=== PATIENT | male | born 1970 | race Hispanic/Latino ===

== ENCOUNTER 2023-01-18 12:24 | Emergency (ER) | payer BC, SELFPAY ==
--- NOTE | ~2023-01-18 | XR_ITS ---
EXAMINATION: XR abdomen/kub 1V DATE: 01/18/2023 13:10 INDICATION: Hematuria. Low back pain. TECHNIQUE: A supine view of the abdomen on 2 radiographs was obtained. COMPARISON: CT abdomen and pelvis 10/12/12 FINDINGS: There are no dilated loops of bowel. There is a small volume of stool in the colon. Two 1-2 mm calcifications are noted in left pelvis. IMPRESSION: 1. Normal bowel gas pattern. 2. Two 1-2 mm calcifications in left pelvis, which may be phleboliths or less likely distal ureteral stones. Reviewed, dictated and finalized at location A. IMPRESSION: 1. Normal bowel gas pattern. 2. Two 1-2 mm calcifications in left pelvis, which may be phleboliths or less l ikely distal ureteral stones.
--- NOTE | 2023-01-18 12:27 | ED.GENADULT ---
HPI - General Adult General Chief complaint: Urogenital-Male Stated complaint: uti symptoms Time Seen by Provider: 01/18/23 12:27 Source: patient Mode of arrival: ambulatory Limitations: no limitations History of Present Illness HPI narrative: 52-year-old male patient presents to the [facility] with complaints of urinary symptoms that started today. Patient states he has had slight pain when he urinates but really noticed blood in his urine today which prompted him to come to the urgent care for evaluation. Patient states he has had some urgency but denies any trouble starting his stream. Denies any concerns for STDs. Patient denies any back pain but he states he also does have chronic back pain denies any flank pain at this time. Denies fevers, body aches or chills. Denies any abdominal pain, nausea, vomiting or diarrhea. Related Data Allergies Allergy/AdvReac Type Severity Reaction Status Date / Time No Known Allergies Allergy Verified 01/18/23 12:50 Review of Systems Review of Systems: CONSTITUTIONAL: Denies fever, chills, or sweats. EYES: Denies visual changes, redness, or discharge. ENT: Denies rhinorrhea, congestion, sore throat, or otalgia. CARDIOVASCULAR: Denies chest pain, palpitations, or edema. RESPIRATORY: Denies cough or dyspnea. GASTROINTESTINAL: Denies abdominal pain, nausea, vomiting, or diarrhea. GENITOURINARY: Positive dysuria and hematuria that started today SKIN: Denies rash or itching. MUSCULOSKELETAL: Denies back pain, joint pain, or myalgia. NEUROLOGIC: Denies headache, numbness, or weakness. PSYCHIATRIC: Denies anxiety or depression. [facility] Past Medical History Medical History Chicken pox History of right inguinal hernia Mumps Family History Family History Sibling Liver cancer Father , 85 Liver cancer Social History Social History Social History: 16 ounces of caffeine per day Smoking status: Never smoker Second hand tobacco smoke exposure: No Alcohol intake: unknown Alcohol use details: 1 beer occasionally Substance use: never Substance use type: does not use Occupation/Education: occupation Gender identity (if verbalized by the patient): Male Comments at the time of my signature I agree with nursing past medical history, surgical, social, and family history. There is no relevant family history pertinent to the presenting complaint. Exam Narrative: GENERAL: Well-appearing, well-nourished, and in no acute distress. HEAD: Normocephalic, atraumatic. EYES: PERRLA and EOMI. ENT: Nares clear, no rhinorrhea or epistaxis. Mucous membranes moist. NECK: Supple. No lymphadenopathy CHEST: Clear to auscultation. No respiratory distress. HEART: Regular rate and rhythm. No murmur heard. Normal peripheral pulses. ABDOMEN: Soft, nontender, nondistended, normal active bowel sounds. no CVA tenderness on percussion. EXTREMITIES: Normal range of motion. No edema. SKIN: Warm, dry, no rash. NEURO: No focal deficits. Alert and oriented x3. Course Course Level of Care: Express Care Visit Reevaluation(s) Reevaluation #1: Notify patient that that KUB did show evidence of possible kidney stones that could be causing his symptoms. I recommended that we send the patient over to the ER to obtain a CT just to make sure that there is no evidence of anything obstructing and to follow-up with urology. Patient agrees to this plan of care. Date: 01/18/23 Time: 13:44 Vital Signs Vital signs: Vital Signs Temperature 37.1 C 01/18/23 12:49 Pulse Rate 92 01/18/23 12:49 Respiratory Rate 18 01/18/23 12:49 Blood Pressure 145/84 H 01/18/23 12:49 Pulse Oximetry 98 01/18/23 12:49 Oxygen Delivery Room Air 01/18/23 12:49 Temperature 37.1 C 01/18/23 12:49 Pulse Rate 92 01/18/23 12:
[2023-01-18 12:49] VITALS: BP 145/84; PULSE 92; RESP 18; TEMP 37.1; O2SAT 98
== END 2023-01-18 13:44 | disposition short-term general hospital (02) ==
PROVIDERS: Emergency Provider Nurse Practitioner Family
DX: R31.0 Gross hematuria (principal)
CPT/HCPCS: 74018; 81003; 87086; 99213; G0463

== ENCOUNTER 2023-01-18 14:06 | Emergency (ER) | payer BC, SELFPAY ==
[2023-01-18 14:21] VITALS: BP 129/89; PULSE 90; RESP 18; TEMP 36.4; O2SAT 96
--- NOTE | 2023-01-18 14:26 | ED.MALEGU ---
HPI - Male Genitourinary General Chief complaint: Urogenital-Male Stated complaint: hematuria Time Seen by Provider: 01/18/23 14:09 Source: patient Mode of arrival: ambulatory Limitations: no limitations History of Present Illness HPI Narrative: 52 years old male came to the emergency room because he noticed red urine 3 hours prior to arrival. He denies any fever, chills, nausea, vomiting, pain, history of kidney stone. Patient take vitamin D at home. He does not smoke or drink or uses drugs. He denies having similar symptoms in the past. He is not taking anticoagulant or antiplatelet medication. Related Data Sexually active: No Allergies Allergy/AdvReac Type Severity Reaction Status Date / Time No Known Allergies Allergy Verified 01/18/23 14:24 Review of Systems Review of Systems: All systems reviewed & are unremarkable except as noted in HPI and below PMFSH Past Medical History Medical History Chicken pox History of right inguinal hernia Mumps Family History Family History Sibling Liver cancer Father , 85 Liver cancer Social History Social History Social History: 16 ounces of caffeine per day Smoking status: Never smoker Second hand tobacco smoke exposure: No Alcohol intake: unknown Alcohol use details: 1 beer occasionally Substance use: never Substance use type: does not use Occupation/Education: occupation Gender identity (if verbalized by the patient): Male Exam Narrative: General appearance: Well-developed, well-nourished Skin: Normal color Head: Normocephalic, nontraumatic Eyes: Clear conjunctiva ENT: Oropharynx normal, ears normal, nose normal Neck: Supple, nontender Chest and respiratory: Airway patent, no respiratory distress, no accessory muscle use Heart: Regular rate/rhythm Abdomen: Soft, nontender, no organomegaly, quiet bowel sounds Vascular: Normal peripheral pulses, normal capillary refill. Musculoskeletal: Normal range of motion, nontender back Neurologic: Alert and oriented ?3, MARKING CLERK is normal as tested, no gross motor deficit Course SPARK TESTER/PA Physician Supervision Urine sample is extremely clear. Reevaluation(s) Reevaluation #1: Currently patient is asymptomatic, urine sample is extremely clear. Date: 01/18/23 Time: 14:29 Vital Signs Vital signs: Vital Signs Temperature 36.4 C 01/18/23 14:21 Pulse Rate 90 01/18/23 14:21 Respiratory Rate 18 01/18/23 14:21 Blood Pressure 129/89 01/18/23 14:21 Pulse Oximetry 96 01/18/23 14:21 Oxygen Delivery Room Air 01/18/23 14:21 Temperature 36.4 C 01/18/23 14:21 Pulse Rate 90 01/18/23 14:21 Respiratory Rate 18 01/18/23 14:21 Blood Pressure 129/89 01/18/23 14:21 Pulse Oximetry 96 01/18/23 14:21 Oxygen Delivery Room Air 01/18/23 14:21 MDM - Male Genitourinary MDM Narrative Medical decision making narrative: Patient claiming seeing blood in his urine 2 to 3 hours prior to arrival to the emergency room, he is asymptomatic otherwise. Urine sample was very clear, urine analysis showed 1+ leukoesterase, no blood. UTI is a possibility. Patient will be discharged on Cipro 500 twice daily for 7 days. Differential Diagnosis Differential diagnosis: Likely urinary tract infection Lab Data Attestation: I reviewed the patient's lab results. Labs: Lab Results 01/18/23 Range/Units 14:26 Urine Color Yellow (Yellow) Urine Appearance Clear (Clear) Urine pH 6.5 (5.0-9.0) Ur Specific [place] 1.002 (1.001-1.035
[2023-01-18 14:54] LABS: Add Urine Microscopic? YES; Appearance Urine Clear (Clear); Bacteria Urine None Seen /hpf; Bilirubin Urine Negative (Negative); Blood Urine Trace (Negative); Color Urine Yellow (Yellow); Glucose Urine UA Negative (Negative); Ketones Urine Negative (Negative); Leukocyte Esterase Ur 1+ LEU/UL (Negative); Need Manual Microscopic Reviewed; Nitrate Urine Negative (Negative); Non Pathogenic Casts 0-2; Protein Urine Negative (Negative); RBC Urine 0-2 /hpf (0-2); Specific Grav Ur 1.002 (1.001-1.035); Squamous Epithelial Cell Urine None seen /hpf (Few); Urobilinogen Urine 0.2 mg/dL (<2.0); WBC Urine 0-5 /hpf; pH Urine 6.5 (5.0-9.0)
[2023-01-18 15:22] VITALS: BP 149/87; PULSE 88; RESP 18; O2SAT 96
== END 2023-01-18 15:23 | disposition home or self-care (01) ==
PROVIDERS: Emergency Provider Emergency Medicine
DX: N39.0 Urinary tract infection, site not specified (principal)
CPT/HCPCS: 81001; 99283

== ENCOUNTER 2024-04-08 09:49 | Emergency (ER) | payer BC, SELFPAY ==
--- NOTE | 2024-04-08 09:54 | ED.DIZZY ---
HPI - Dizziness General Chief Complaint: Dizziness Stated Complaint: dizziness Time Seen by Provider: 04/08/24 09:53 Source: patient Mode of arrival: ambulatory Limitations: no limitations History of Present Illness HPI Narrative: Trey is a 53-year-old male patient presenting to the clinic today with complaints of intermittent dizziness for the past couple months. He reports no sinus or nasal congestion. He does not suffer from seasonal allergies. Denies any associated chest pain, shortness of breath, or visual changes. No personal history of diabetes. States that the dizziness room spinning occurs when he turns his head to the right and when he is laying on his right side. He denies any dizziness at this time. Related Data Allergies Allergy/AdvReac Type Severity Reaction Status Date / Time No Known Allergies Allergy Verified 04/08/24 10:05 Review of Systems Review of Systems: Pertinent positives per HPI. Patient denies any fever, chills, rash, headache, visual changes, cough, runny nose, sore throat, shortness of breath, chest pain, palpitations, nausea, vomiting, diarrhea, constipation, abdominal pain, or any urinary issues. [facility] Past Medical History Medical History Chicken pox History of right inguinal hernia Mumps Family History Family History Sibling Liver cancer Father , 85 Liver cancer Social History Social History Social History: 16 ounces of caffeine per day Smoking status: Never smoker Second hand tobacco smoke exposure: No Alcohol intake: unknown Alcohol use details: 1 beer occasionally Substance use: never Substance use type: does not use Lack of Transportation: No Lack of Food: Never True Concerned About Future Housing: No Difficulty Paying Gas/Electric Bills: No Difficulty Paying for Meds: No Currently Unemployed: No Difficulty w/ Childcare or Family Care: No Occupation/Education: occupation Gender identity (if verbalized by the patient): Male Comments At the time of my signature, I reviewed and agree with the nursing past medical, surgical, social, and family history. There is no relevant family history pertinent to the patient complaint. Exam Narrative: General: Well-developed, well nourished, in no apparent distress Head: Normocephalic, atraumatic Eyes: Pupils equally round and reactive to light bilaterally, EOM intact, sclera and conjunctive clear, no discharge, lids normal Ears: TMs intact and clear ear canals clear, no drainage, grossly hearing normal. Nose: Nares patent, no discharge, no inflammation, no sinus tenderness. Mouth: Oropharynx without lesions or masses, good dentition, MMM. Tongue midline, even rise and fall of uvula Neck: Supple, trachea midline, no enlargement of anterior or posterior cervical nodes, no thyroid masses or goiter palpable. Cardio: Regular rate and rhythm, s1 and s2 normal, no murmur appreciated. Resp: Clear to auscultation bilaterally anteriorly and posteriorly, no rhonchi, rales, wheezing or rubs Musculoskeletal: No deformity, non-tender to palpation, grossly normal range of motion, muscle strength strong and equal, peripheral pulse strong, no edema, no cyanosis, normal gait and station Neuro: Alert and oriented x4 with normal speech, no focal deficits, cranial nerves I through XII intact, muscle strength 5 out of 5, sensation intact bilaterally, negative Romberg test Course Course Emergency Course: Portions of this record may have been created with voice recognition software. Level of Care: Express Care Visit Vital Signs Vital signs: Vital signs reviewed MDM - Dizziness MDM Narrative Medical decision making narrative: At the time of visit patient is resting comfortably on the exam table. Patient appears to
[2024-04-08 10:02] VITALS: BP 145/82; PULSE 71; RESP 18; TEMP 36.7; O2SAT 98
--- NOTE | 2024-04-08 10:11 | ECG_ITS ---
Test Date: 2024-04-08 10:26:20 Measurements Intervals [place] Rate: 77 P: 45 CO: 197 QRS: -8 QRSD: 80 T: 26 QT: 342 QTc: 387 Interpretive Statements SINUS RHYTHM EARLY PRECORDIAL R/S TRANSITION INFERIOR INFARCT, AGE INDETERMINATE ABNORMAL ECG No previous ECG available for comparison Electronically Signed On 04-08-2024 10:36:50 CDT by Afshin Giron D.O.
[2024-04-08 10:21] VITALS: BP 134/78; PULSE 72
[2024-04-08 10:26] VITALS: BP 121/84; PULSE 80
[2024-04-08 10:29] VITALS: BP 134/93; PULSE 83
[2024-04-08 10:31] LABS: EDUAAPPEAR Clear; EDUABILI Negative (Negative); EDUABLOOD Negative (Negative); EDUACOLOR1 Yellow; EDUAGLUCOSE Negative (Negative); EDUAKETONE Negative (Negative); EDUALEUKO Negative (Negative); EDUANITRATE Negative (Negative); EDUAPROTEIN Negative (Negative); EDUASPGRAVITY 1.025
[2024-04-08 10:34] LABS: Glucose Point of Care 160 mg/dl (65-105)
== END 2024-04-08 10:44 | disposition home or self-care (01) ==
PROVIDERS: Emergency Provider Nurse Practitioner Family; PCP Emergency Medicine
DX: H81.11 Benign paroxysmal vertigo, right ear (principal); R73.9 Hyperglycemia, unspecified
CPT/HCPCS: 81003; 82948; 93005; 99213; G0463

== ENCOUNTER 2024-07-26 12:21 | Emergency (ER) | payer BC, SELFPAY ==
[2024-07-26 12:32] VITALS: BP 138/81; PULSE 74; RESP 18; TEMP 36.3; O2SAT 99
--- NOTE | 2024-07-26 12:45 | ED.URI ---
HPI - URI/Sore Throat General Chief Complaint: Upper Respiratory Infection Stated Complaint: dizziness Time Seen by Provider: 07/26/24 12:45 Source: patient, RN notes reviewed and old records reviewed Mode of arrival: ambulatory Limitations: no limitations History of Present Illness HPI Narrative: patient with stated history of benign positional vertigo presents today accompanied by his . He reports that he had to leave work early today because he began experiencing dizziness that felt similar, but more severe, that his last bout of vertigo. Reports that he takes meclizine for his symptoms with good relief most of the time, but did not have his meclizine with him today. He has not taken any medication prior to arrival. He denies any injury or trauma. He is observed ambulating with a steady gait. No other concerns or complaints today. Related Data Allergies Allergy/AdvReac Type Severity Reaction Status Date / Time No Known Allergies Allergy Verified 07/26/24 12:46 Review of Systems Review of Systems: All systems reviewed & are unremarkable except as noted in HPI and below Constitutional: Constitutional: Reports no additional constitutional complaints ENT: Reports system reviewed and no additional complaints, except as documented and Reports as per HPI Cardiovascular: Cardiovascular: Reports no additional cardiovascular complaints Respiratory: Respiratory: Reports no additional respiratory complaints Gastrointestinal: Gastrointestinal: Reports no additional gastrointestinal complaints Neurologic: Reports system reviewed and no additional complaints, except as documented, Reports as per HPI, Reports vertigo and Reports dizziness PMFSH Past Medical History Medical History Hyperglycemia History of right inguinal hernia Mumps Chicken pox Family History Family History Sibling Liver cancer Father , 85 Liver cancer Social History Social History Social History: 16 ounces of caffeine per day Smoking status: Never smoker Second hand tobacco smoke exposure: No Alcohol intake: unknown Alcohol use details: 1 beer occasionally Substance use: never Substance use type: does not use Lack of Transportation: No Lack of Food: Never True Concerned About Future Housing: No Difficulty Paying Gas/Electric Bills: No Difficulty Paying for Meds: No Currently Unemployed: No Education: Grade School Difficulty w/ Childcare or Family Care: No Occupation/Education: occupation Gender identity (if verbalized by the patient): Male Comments At the time of my signature, I reviewed and agree with the nursing past medical, surgical, social, and family history. There is no relevant family history pertinent to the patient complaint. Exam Const: General: cooperative, no acute distress, alert and awake Orientation/consciousness: oriented to person, oriented to place and oriented to time HENMT: Head: normal to inspection Ears: TM's normal bilaterally Mouth: Yes moist mucous membranes Resp: Effort & Inspection: normal respiratory effort and able to speak in complete sentences Auscultation: clear to auscultation bilaterally, no crackles, no rales, no rhonchi and no wheezes Cardio: Palpation: normal PMI Rate: regular rate Rhythm: regular rhythm Heart sounds: S1 normal heart sound present and S2 normal heart sound present Neuro: General: oriented to person, oriented to place and oriented to time Cranial nerves: Yes CN's II-XII intact bilaterally Cognition (Neuro): normal cognition Speech: normal speech Gait exam (Neuro): Normal gait present Motor exam (neuro): 5/5 motor strength present throughout Psych: Appearance: grossly normal Thought process: Normal thought process present Insight: Good insight present (Psych) Judgement: Good judgement present (Psych) Course Course Level of Care: Express Care Visit Reevaluation(s) Reevaluation #1: feeling better after taking meclizine Date: 07/26/24 Time: 13:25 Vital Signs Vital signs: Vital Signs Temperature 97.4 F L 07/26/24 12:32 Pulse Rate 74 07/26/24 12:32 Respiratory Rate 18 07/26/24 12:32 Blood Pressure 138/81 07/26/24 12:32 Pulse Oximetry 99 07/26/24 12:32 Oxygen Delivery Room Air 07/26/24 12:32 Temperature 97.4 F L 07/26/24 12:32 Pulse Rate 74 07/26/24 12:32 Respiratory Rate 18 07/26/24 12:32 Blood Pressure 138/81 07/26/24 12:32 Pulse Oximetry 99 07/26/24 12:32 Oxygen Delivery Room Air 07/26/24 12:32 Reviewed MDM - URI/Sore Throat MDM Narrative Medical decision making narrative: Patient with no deficits complaining of dizziness that is reminiscent of past bouts of vertigo. Improved with meclizine. Discharge home with new prescription. Some parts of this dictation were generated by voice recognition software and may contain typographical and/or grammatical inaccuracies. Discharge instructions reviewed with patient, as well as provided in writing per nursing staff. The instructions also include specific and strict return/GO TO THE ER as well as f/u information. All questions have been answered, and the patient deny any further questions with discharge and discharge plan. Differential Diagnosis Differential diagnosis: Likely upper respiratory infection, otitis media, sinusitis, bronchitis, influenza and pharyngitis Medical Records Attestation: I reviewed the patient's medical records. Discharge Plan Discharge Clinical Impression: Vertigo Patient Disposition: Home, Self-Care Condition: Stable Instructions: Antibiotic Form, Benign Paroxysmal Positional Vertigo (ED) Additional Instructions: Take medications as prescribed. Follow with primary care provider. Emergency department for new or worse symptoms Patient Language: Swedish Prescriptions: New meclizine [Antivert] 50 mg tablet 50 mg PO TID PRN (Reason: dizziness) Qty: 30 0RF No Action cholecalciferol (vitamin D3) 1,250 mcg (50,000 unit) capsule See Rx Instructions .ROUTE .COMPLEX Qty: 12 2RF Dose Instruction: TAKE 1 CAPSULE BY MOUTH WEEKLY Rx Instructions: TAKE 1 CAPSULE BY MOUTH WEEKLY Follow-up/Referrals: Arnel Hernández MD [Primary Care Provider] - 3 Days Stand Alone Forms: Work/School Release IP Time of Disposition: 13:35
[2024-07-26] MEDS: MECLIZINE HCL 25 MG TABLET 50 MG PO (12:55)
== END 2024-07-26 13:38 | disposition home or self-care (01) ==
PROVIDERS: Emergency Provider Nurse Practitioner Family; PCP Emergency Medicine
DX: R42 Dizziness and giddiness (principal)
CPT/HCPCS: 99213; A9270; G0463

== ENCOUNTER 2024-08-17 14:53 | Outpatient (CLI) | payer BC, SELFPAY ==
--- NOTE | ~2024-08-17 | CT_ITS ---
EXAMINATION: CT sinus wo con DATE: 08/17/2024 15:19 INDICATION: Chronic sinusitis. TECHNIQUE: Computed tomography (CT) of the paranasal sinuses was performed without intravenous contra st. Iterative reconstruction technique was employed. The dose-length product was 252.58 mGy-cm. COMPARISON: None FINDINGS: There is mild mucosal thickening in the frontal recesses. There is mild mucosal thickening in the ethmoid and sphenoid sinuses and moderate mucosal thickening in the maxillary sinuses. There i s rightward deviation of superior nasal septum and leftward deviation of the inferior nasal septum wi th a left lateral spur. The ostiomeatal units are patent. IMPRESSION: 1. Mucosal thickening in the paranasal sinuses with occluded ostiomeatal units. 2. Rightward deviation of superior nasal septum and leftward deviation of the inferior nasal septum w ith a left lateral spur. Reviewed, dictated and finalized at location A. ER WELDER IMPRESSION: 1. Mucosal thickening in the paranasal sinuses with occluded ostiomeatal units. 2. Rightward deviation of superior nasal septum and leftward deviation of the i nferior nasal septum with a left lateral spur.
== END 2024-08-17 14:54 | disposition home or self-care (01) ==
LOC: MICIMG 14:54
PROVIDERS: PCP Emergency Medicine; Visit Provider Emergency Medicine
DX: J32.9 Chronic sinusitis, unspecified (principal); J34.2 Deviated nasal septum; J34.89 Other specified disorders of nose and nasal sinuses
CPT/HCPCS: 70486

== ENCOUNTER 2025-02-20 05:05 | Inpatient (IN) | payer BC, SELFPAY ==
[2025-02-20] VITALS (8 sets, daily range): BP systolic 137–175; BP diastolic 71–97; PULSE 77–109; RESP 16–20; TEMP 36.3–37.1; O2SAT 92–99; BMI 38.6
--- NOTE | ~2025-02-20 | MR_ITS ---
EXAMINATION: MR MRCP wo/w con/w 3D wo ind DATE: 02/21/2025 12:58 INDICATION: Choledocholithiasis TECHNIQUE: Magnetic resonance imaging (MRI) of the abdomen was performed without and with 20 mL Multi kourtney intravenous contrast. Sequences included coronal T2-weighted SS-FSE, coronal T2-weighted FS SS- FSE, coronal T2-weighted FS FIESTA, axial T2-weighted FS FIESTA, axial T2-weighted FIESTA, sagittal T 2-weighted SS-FSE, axial T1-weighted dual-echo FSPGR, axial T2-weighted SS-FSE, axial T1-weighted LAV A, axial T2-weighted STIR FSE. Thick-slab T2-weighted FRFSE-XL images were obtained for magnetic reso nance cholangiopancreatography (MRCP). Rotating maximum intensity projection 3-D reconstructions of t he volumetric data were created by the technologist. Postcontrast sequences included a time course of axial T1-weighted LAVA. COMPARISON: CT dated 02/20/2025 FINDINGS: ABDOMEN MRI: Heart size is normal. Mild dependent atelectasis in bilateral lower lobes. No pericardial or pleural effusion. Prominent diffuse hepatic steatosis. 3.3 cm low-attenuation stone at the neck of the gallbl adder. There is some intermediate signal intensity dependent sludge at the fundus of the gallbladder. There is diffuse gallbladder wall and mild stranding surrounding the gallbladder amount of nonlocula xioa fluid extending caudally along the duodenum, anterior right pararenal space and right paracolic g utter suspicious for acute cholecystitis. Pancreas, spleen, bilateral adrenal glands and right kidney are normal. Mild left hydronephrosis with tapering of the ureteropelvic junction with no discrete ob structing lesions identified. No evident decreased or delayed parenchymal enhancement of the left kid zita relative the right to suggest significant obstruction. Visualized portions of bowels are normal i ncluding a normal appendix. No pathologically enlarged abdominal lymphadenopathy. Visualized bones ar e unremarkable with normal marrow signal throughout. Very small fat-containing umbilical hernia. ABDOMEN MRCP: Normal caliber common bile duct measuring up to 5 mm which tapers distally with no intraluminal filli ng defects to suggest choledocholithiasis. No intrahepatic ductal or ductal dilation. IMPRESSION: 1. Lithiasis with gallbladder wall thickening and some pericholecystic edema suspicious for acute cho lecystitis although the gallbladder is not frankly dilated. Could consider HIDA scan for more definit gurwinder determination as clinically indicated. 2. No choledocholithiasis with no intra or extra hepatic biliary ductal dilation. 2. Persistent mild left hydronephrosis without delayed or decreased nephrogram which is of indetermin ate etiology. Reviewed, dictated and finalized at location A. IMPRESSION: 1. Lithiasis with gallbladder wall thickening and some pericholecystic edema quevedo spicious for acute cholecystitis although the gallbladder is not frankly dilate d. Could consider HIDA scan for more definitive determination as clinically ind icated. 2. No choledocholithiasis with no intra or extra hepatic biliary ductal dilatio n. 2. Persistent mild left hydronephrosis without delayed or decreased nephrogram which is of indeterminate etiology.
--- NOTE | ~2025-02-20 | CT_ITS ---
EXAMINATION: CT abdomen pelvis wo con DATE: 02/20/2025 05:40 INDICATION: Right lower quadrant/flank pain. Possible nephrolithiasis. TECHNIQUE: Computed tomography (CT) of the abdomen and pelvis was performed without intravenous contr ast. Automated exposure control and iterative reconstruction technique were employed. The dose-length product was 547.85 mGy-cm. COMPARISON: None FINDINGS: Mild dependent atelectasis in bilateral lower lobes. Heart size is normal. No pericardial or pleural effusion. Small sliding-type hiatal hernia. Diffuse hepatic steatosis. Calcified gallstone in the oth erwise normal-appearing gallbladder. Spleen, pancreas, bilateral adrenal glands and right kidney are normal. 2 mm stone at the lower pole of the left kidney. Mild caliectasis without evident obstructing stone versus more likely small peripelvic cysts in the left kidney. Prostatomegaly measuring 5.7 x 4 .5 cm. Bladder is normal. Bowels including the appendix are normal. Small fat-containing umbilical he rnia. No free intraperitoneal gas or fluid. No pathologically enlarged abdominal or pelvic lymphadeno moo. Small sclerotic bone island at the right femoral head along side a chronic benign lytic lesion which is remained unchanged since 2013 with suggestion of some internal chondroid matrix suggesting an enchondroma. IMPRESSION: 1. Single 2 mm nonobstructing stone at the lower pole of the left kidney. Could not exclude mild elva ectasis at the left kidney without evident obstructing lesion although would favor peripelvic cysts. This could be differentiated with CT urogram with delayed postcontrast imaging. 2. Cholelithiasis without suggestion of acute cholecystitis.. 3. No other acute intra-abdominal/pelvic process. Specifically the appendix is normal. 4. Small sliding-type hiatal hernia. 5. Small fat-containing umbilical hernia. Reviewed, dictated and finalized at location A. IMPRESSION: 1. Single 2 mm nonobstructing stone at the lower pole of the left kidney. Could not exclude mild caliectasis at the left kidney without evident obstructing le darnell although would favor peripelvic cysts. This could be differentiated with C T urogram with delayed postcontrast imaging. 2. Cholelithiasis without suggestion of acute cholecystitis.. 3. No other acute intra-abdominal/pelvic process. Specifically the appendix is normal. 4. Small sliding-type hiatal hernia. 5. Small fat-containing umbilical hernia.
--- OUTSIDE RECORDS SUMMARY | 2025-02-20 05:07 | XMS_ITS | Continuity of Care Document ---
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 Name Role Phone Ezio PT, DPT, Tito Unavailable Unavaila ble Procedures Procedure Date Therapeutic Exercise Neuromuscular Re-Ed Manual Therapy Hot or Cold Pack Therapeutic Exercise Neuromuscular Re-Ed Manual Therapy Therapeutic Exercise Neuromuscular Re-Ed Manual Therapy Hot or Cold Pack Therapeutic Exercise Manual Therapy PT Re-evaluation Therapeutic Exercise Therapeutic Activities Neuromuscular Re-Ed Manual Therapy Hot or Cold Pack Therapeutic Exercise Therapeutic Activities Neuromuscular Re-Ed Manual Therapy Therapeutic Exercise Therapeutic Activities Neuromuscular Re-Ed Manual Therapy Therapeutic Exercise Therapeutic Activities Neuromuscular Re-Ed Manual Therapy Hot or Cold Pack Therapeutic Exercise Therapeutic Activities Neuromuscular Re-Ed Manual Therapy Hot or Cold Pack Therapeutic Exercise Therapeutic Activities Neuromuscular Re-Ed Manual Therapy Hot or Cold Pack Progress Note Therapeutic Exercise Therapeutic Activities Neuromuscular Re-Ed Manual Therapy Therapeutic Exercise Therapeutic Activities Neuromuscular Re-Ed Manual Therapy Therapeutic Exercise Therapeutic Activities Neuromuscular Re-Ed Manual Therapy Hot or Cold Pack Therapeutic Exercise Therapeutic Activities Neuromuscular Re-Ed Therapeutic Exercise Manual Therapy Hot or Cold Pack PT Evaluation Moderate Complexity Therapeutic Exercise Hot or Cold Pack Advance Directives Directive Yes / No Effective Date File Name No Information Encounters Encounter Description Practice Location Reason(s) For Visit Diagnoses Date Provider Providers Copied on Encounter [facility] [facility], [place], [place], [id number], tel:[phone] [facility] Radiculopathy, lumbar regionLumbago with sciatica, right side Ezio Sofia . Referring Provider: Jonnathan Lui , [address], [address]. tel:[phone] [facility] [address] [facility] [address], [place], [place], [id number], tel:[phone] [facility] Radiculopathy, lumbar regionLumbago with sciatica, right side Berhane Rahman. [address] [facility], [address], [place], [address], [place]. tel:[phone] Referring Provider: Jonnathan Lui , [address], [place], [address]. tel:[phone] [facility] [address] [facility] [address], [place], [place], [id number], tel:[phone] [facility] Radiculopathy, lumbar regionLumbago with sciatica, right side Amira Burciaga. [address] [facility], [address], [place], [place], [facility], . tel:[phone] Referring Provider: Jonnathan Lui , [address], [place], [address]. tel:[phone] [place] [address] [address], [place], [place], [id number], tel:[phone] [facility] Radiculopathy, lumbar regionLumbago with sciatica, right side Ezio Mckay Referring Provider: Jonnathan Lui , [address] [facility] [address], [place], [address]. tel:[phone] [facility] [address] [facility] [address], [place], [place], [id number], tel:[phone] [facility] Radiculopathy, lumbar regionLumbago with sciatica, right side Amira Burciaga. [address] [facility], [address], [place], [address], . tel:[phone] Referring Provider: Jonnathan Lui , [address] [facility] [address], [place], [address]. tel:[phone] [facility] [address] [facility] [address], [place], [place], [id number], tel:[phone] [facility] Radiculopathy, lumbar regionLumbago with sciatica, right side Amira Burciaga. [address] [facility], [address], [place], [address], . tel:[phone] Referring Provider: Jonnathan Lui , [address] [facility] [address], [place], [address]. tel:[phone] [facility] [address], [place], [place], [id number], [place] tel:[phone] [facility] Radiculopathy, lumbar regionLumbago with sciatica, right side Berhane Rahman. [address] [facility], [address], [place], [place], [facility], . tel:[phone] Referring Provider: Jonnathan Lui , [address] [facility] [address], [place], [address]. tel:[phone] [facility] [facility] [address], [place], [place], [id number], [place] tel:[phone] [facility] Radiculopathy, lumbar regionLumbago with sciatica, right side Ezio Francis. . Referring Provider: Jonnathan Lui , [address] [facility] [address], [place], [address]. tel:[phone] [facility] [facility] [address], [place], [place], [id number], [place] tel:[phone] [facility] Radiculopathy, lumbar regionLumbago with sciatica, right side Ezio Francis. . Referring Provider: Jonnathan Lui , [address] [facility] [address], [place], [address]. tel:[phone] [facility], [address] [facility] [address], [place], [place], [id number], [place] tel:[phone] [facility] Radiculopathy, lumbar regionLumbago with sciatica, right side Ezio Francis. . Referring Provider: Jonnathan Lui , [address] [facility] [address], [place], [address]. tel:[phone] [facility] [facility], [place], [place], [id number], [place] tel:[phone] [facility] Radiculopathy, lumbar regionLumbago with sciatica, right side Berhane Rahman. [address] [facility], [address], [place], [address], [place]. tel:[phone] Referring Provider: Jonnathan Lui , [address], [place], [address]. tel:[phone] [facility], [address] [facility] [address], [place], [place], [id number], tel:[phone] [facility] Radiculopathy, lumbar regionLumbago with sciatica, right side Berhane Rahman. [address] [facility], [address], [place], [address], [place]. tel:[phone] Referring Provider: Jonnathan Lui , [address] [facility] [address], [place], [address]. tel:[phone] [facility] [address] [facility] [address], [place], [place], [id number], [place] tel:[phone] [facility] Radiculopathy, lumbar regionLumbago with sciatica, right side Ezio Sofia . Referring Provider: Jonnathan Lui , [address] [facility] [address], [place], [address]. tel:[phone] [facility], [address] [facility] [address], [place], [place], [id number], [place] tel:[phone] [facility] Radiculopathy, lumbar regionLumbago with sciatica, right side Berhane Rahman. [address] [facility], [address], [place], [address], [place]. tel:[phone] Referring Provider: Jonnathan Lui , [address] [facility] [address], [place], [address]. tel:[phone] [facility], [address] [facility] [address], [place], [place], [id number], [place] tel:[phone] [facility] Radiculopathy, lumbar regionLumbago with sciatica, right side Ezio Francis. . Referring Provider: Jonnathan Lui , [address] [facility] [address], [place], [address]. tel:[phone] [facility], [address] [facility] [address], [place], [place], [id number], [place] tel:[phone] [facility] Radiculopathy, lumbar regionLumbago with sciatica, right side Jose Hackett [address] [facility], [address], [place], [address], [place]. tel:[phone] Referring Provider: Jonnathan Lui , [address] [facility] [address], [place], [address]. tel:[phone] Family History Family Member Type Diagnosis Age At Onset No Information Payers Payer name Insurance type Covered republican ID Authorcony smith(s) [facility] Faye TRENT [id number] Social History Type Description Quantity Date Captured Comments Sex Male Smoking Status No Information Chief Complaint And Reason For Visit No Information Reason For Referral Reason For Referral No Information History Of Present Illness Encounter Date Complaint History Of Prese nt Illness No Information Functional Status Date Functional Assessmen t No Information Instructions Date Instruction Additional Infor mation No Information Assessments Type Assessment Date No Information Patient Care Teams Name Effective Dates (start - stop) Status Members No Information
--- OUTSIDE RECORDS SUMMARY | 2025-02-20 05:07 | XMS_ITS | Clinical Summary ---
Author Organization [facility] Address [facility] [place] [address] Care Team Providers Care Dedicated Regional Driver Name Role Phone Camille Mccann MD Primary Care Provider Allergies No known active allergies Medications predniSONE 20 MG tablet Take 3 tabs po daily for 3 days then take 2 tabs po daily for 3 days then take 1 tab po daily for 3 days then stop. 18 tablet 02/13/2019 Active Active Problems Problem Noted Date Diagnosed Date Poison raheem dermatitis 03/28/2019 Social History Tobacco Use Types Packs/Day Years Used Date Smoking Tobacco: Never Smokeless Tobacco: Never Alcohol Use Standard Drinks/Week Comments No 0 (1 standard drink = 0.6 oz pur e alcohol) AUDIT-C Answer Date Recorded Frequency of Alcohol Consumption Never 02/13/2019 Average Number of Drinks Not on file 019 Frequency of Binge Drinking Not on file 09/2018 Sex and Gender Information Value Date Recorded Sex Assigned at Not on file Legal Sex Male 4:24 PM CDT Gender Identity Not on file Sexual Orientation Not on file Last Filed Vital Signs Vital Sign Reading Time Taken Comments Blood Pressure 112/73 02/13/2019 5:13 PM CDT Pulse 95 02/13/2019 4:36 PM CDT Temperature 37.2 C (98.9 F) 02/13/2019 4:36 PM CDT Respiratory Rate 16 02/13/2019 4:36 PM CDT Oxygen Saturation 97% 02/13/2019 4:36 PM CDT Inhaled Oxygen Concentration - - Weight 108.9 kg (240 lb) 02/13/2019 4:36 PM CDT Height 170.2 cm (5' 7) 02/13/2019 4:36 PM CDT Body Mass Index 37.59 02/13/2019 4:36 PM CDT Plan of Treatment Health Maintenance Due Date Last Done Comments Colorectal Cancer Screening Colonoscopy (10 Years) 1971 Annual Physical 09/11/1974 Hepatitis C 09/11/1989 DTaP, Tdap and Td Vaccines ( 1 - Tdap) 09/11/1990 Hepatitis B Vaccines (1 of 3 - 19+ 3-dose series) 09/11/1990 Pneumococcal Vaccine: 50+ Ye ars (1 of 1 - PCV) 09/11/2021 Zoster Vaccines (1 of 2) 09/11/2021 COVID-19 Vaccine (1 - 2023-2 5 season) 2024 Meningococcal B Vaccine Aged Out No l onger eligible based on patient's age to complete this topic Meningococcal Vaccine Aged Out No micah rober eligible based on patient's age to complete this topic RSV Immunizations Under 20 Months Aged Out No longer eligible based on patient's age to complete this topic Insurance Care Teams Dedicated Regional Driver Relationship Specialty Start Date End Date Camille Mccann MD PCP - General FAMILY PRACTICE 02/13/19
--- NOTE | 2025-02-20 05:13 | ED_ITS ---
HPI - Abdominal Pain General Chief Complaint: Abdominal Pain Stated Complaint: R abd pain/R flank pain Time Seen by Provider: 02/20/25 05:08 History of Present Illness HPI narrative: 54-year-old male presenting with 2 days of right sided abdominal pain and right flank pain. Intermittent in nature states that responded well to aleve earlier today but recurred. Did have some nausea and vomiting. Pain got worse today. No fever, chills. No other symptoms. No trauma or injuries. He has had a history of hernia repair but no other intra-abdominal problems. No surgeries he still has appendix and gallbladder. Thinks he may have had a history of kidney stones several months ago. This pain feels worse. Does not take any current medications, was otherwise in his normal state of health. Related Data Allergies Allergy/AdvReac Type Severity Reaction Status Date / Time No Known Allergies Allergy Verified 02/20/25 06:34 Review of Systems 2 Review of Systems: As reviewed above in HPI [facility] Past Medical History Medical History Chronic ethmoidal sinusitis Chronic maxillary sinusitis Dizziness Chronic low back pain without sciatica Backache, unspecified Hyperglycemia History of right inguinal hernia Mumps Chicken pox Surgical History Surgical History History of right inguinal hernia repair Family History Family History Sibling Liver cancer Father , 85 Liver cancer Social History Social History Social History: Caffeine-occasionally Smoking status: Never smoker Second hand tobacco smoke exposure: No Alcohol intake: never Substance use: never Substance use type: does not use Do You Feel Safe in your Home?: Yes Lack of Transportation: No Lack of Food: Never True Concerned About Future Housing: No Difficulty Paying Gas/Electric Bills: No Difficulty Paying for Meds: No Currently Unemployed: No Education: Grade School Difficulty w/ Childcare or Family Care: No Occupation/Education: occupation Gender identity (if verbalized by the patient): Male Exam 2 Narrative: GENERAL: [Well-appearing, well-nourished, and in no acute distress.] HEAD: [Normocephalic, atraumatic.] EYES: [PERRLA and EOMI.] ENT: Nares clear, no rhinorrhea or epistaxis. Mucous membranes moist. NECK: Supple. CHEST: [Clear to auscultation. No respiratory distress.] HEART: [Regular rate and rhythm]. No murmur heard. [Normal peripheral pulses.] ABDOMEN: [Soft, nondistended], tenderness to palpation the right upper and lower quadrant into the right CVA. possitive murphys sign, [No rigidity or guarding] EXTREMITIES: Normal range of motion. [No edema.] SKIN: Warm, dry, no rash. NEURO: [No focal deficits]. Alert and oriented [x3.] PSYCH: [Normal mood and affect.] Course Vital Signs Vital signs: Vital Signs Temperature 36.3 C L 02/20/25 05:08 Pulse Rate 109 H 02/20/25 05:08 Respiratory Rate 18 02/20/25 05:08 Blood Pressure 173/97 H 02/20/25 05:08 Pulse Oximetry 97 02/20/25 05:08 Oxygen Delivery Room Air 02/20/25 05:08 Temperature 36.3 C L 02/20/25 05:08 Pulse Rate 109 H 02/20/25 05:08 Respiratory Rate 18 02/20/25 05:08 Blood Pressure 173/97 H 02/20/25 05:08 Pulse Oximetry 97 02/20/25 05:08 Oxygen Delivery Room Air 02/20/25 05:08 MDM - Abdominal Pain MDM Narrative Medical decision making narrative: 54-year-old male presenting with 2 days of right sided abdominal pain and right flank pain. Intermittent in nature states that responded well Aleve earlier today but recurred. Did have some nausea and vomiting. Pain got worse today. No fever, chills. No other symptoms. No trauma or injuries. He has had a history of hernia repair but no other intra-abdominal problems. No surgeries he still has appendix and gallbladder. Thinks he may have had a history of kidney stones several months ago. This pain feels worse. Does not take any current medications, was otherwise in his normal state of health. Patient is mildly uncomfortable appearing and slightly tachycardic likely pain mediated. He has reproducible pain with palpation the right upper and lower quadrant and + muprhys sign. Given the quality of his symptoms and history of potential kidney stones this likely is biliary colic versus renal colic versus cholecystitis, choledocholithiasis, pyelonephritis, hepatitis. Other possible process such as diverticulitis, colitis, appendicitis or intra-abdominal infection or abscess less likely but still possible. Laboratory studies obtained, urinalysis ordered. CT scan without contrast ordered as well as treatment regimen with fluids, Zofran and morphine. Patient placed on photonic laboratory technician and re-evaluated. Patient required additional round Dilaudid secondary to uncontrolled pain which improved him significantly. CT scan on my review shows a large gallstone with some dilated gallbladder findings. Confirmed by radiology read with acute cholecystitis, gallstone distention and wall thickening but otherwise no acute findings in the abdomen or pelvis. Patient started on Zosyn for antibiotics. Laboratory studies show white count of 16.4, LFTs normal aside from a bilirubin of 2.0 consistent with presentation. Discussed the case with General surgery Dr. Shannon who accepted the patient to the hospital for admission and made on a clear liquid diet at this time with IV antibiotics currently infusing with Zosyn and as needed pain control medications ordered. Patient made aware of the plan and comfortable with the plan for admission at this time. Medical Records Attestation: I reviewed the patient's medical records. Lab Data Attestation: I reviewed the patient's lab results. 02/20/25 05:24 02/20/25 05:24 Labs: Lab Results 02/20/25 02/20/25 Range/Units 05:24 06:24 WBC 16.4 H (4.5-10.0) K/mm3 RBC 5.28 (4.6-6.20) M/mm3 Hgb 15.6 (14.0-18.0) g/dL Hct 46.3 (42.0-52.0) % MCV 87.7 (80-100) fl MCH 29.5 (26-34) pg MCHC 33.7 (32-36) g/dl RDW 12.7 (11.5-14.5) % Plt Count 249 (150-375) k/mm3 MPV 10.3 (7.4-10.4) fl Immature Gran % (Auto) 0.6 H (0-0.5) % Neut % (Auto) 89.1 H (45.5-73.1) % Lymph % (Auto) 4.0 L (18.3-44.2) % [place] % (Auto) 6.1 (2.6-8.5) % Eos % (Auto) 0.0 (0-4.4) % Baso % (Auto) 0.2 (0.2-1.2) % Lymph # (Auto) 0.66 L (0.9-3.2) K/mm3 [place] # (Auto) 1.0 H (0.1-0.6) K/mm3 Eos # (Auto) 0.0 (0-0.3) K/mm3 Baso # (Auto) 0.0 (0.0-0.1) K/mm3 Abs Immat Gran (auto) 0.10 H (0.00-0.031) K/mm3 Absolute Neuts (auto) 14.6 H (1.3-6.7) K/mm3 Absolute Nucleated RBC 0.000 (0.0-0.012) K/mm3 Nucleated RBC % 0.0 (0.0-0.2) % Sodium 138 (137-145) mmol/L Potassium 4.0 (3.4-5.0) mmol/L Chloride 103 (98-107) mmol/L Carbon Dioxide 23 (22-30) mmol/L Anion Gap 12 (4-12) mmol/L BUN 12 (9-20) mg/dL Creatinine 0.75 (0.7-1.3) mg/dL Estim Creat Clear Calc 114 ml/min Estimated GFR > 60 (59 - ) Glucose 166 H (65-110) mg/dL Calcium 9.1 (8.4-10.2) mg/dL Total Bilirubin 2.0 H (0.2-1.3) mg/dL AST 28 (17-59) U/L ALT 43 (6-50) U/L Alkaline Phosphatase 76 (38-126) U/L Total Protein 8.0 (6.3-8.2) g/dL Albumin 4.6 (3.5-5.1) g/dL Urine Color Dark yellow (Yellow) Urine Appearance Clear (Clear) Urine pH 6.5 (5.0-9.0) Ur Specific [place] 1.028 (1.001-1.035) Urine Protein 2+ H (Negative) mg/dL Urine Glucose (UA) Negative (Negative) mg/dL Urine Ketones 4+ H (Negative) mg/dL Ur Blood (Man) Trace (Negative) Urine Nitrate Negative (Negative) Urine Bilirubin Negative (Negative) Urine Urobilinogen 1.0 (<2.0) mg/dL Leukocyte Esterase Rfl Negative (Negative) LISA/UL Urine RBC 11-20 H (0-2) /hpf Urine WBC 0-5 (0-3) /hpf Ur Squamous Epith Cells None seen (Few) /hpf Urine Bacteria None seen /hpf Urine Casts 0-2 Imaging Data Attestation: I personally reviewed and interpreted this imaging study as follows: My impression: Large gallstone with dilated gallbladder and wall thickening consistent with acute cholecystitis Critical Care Time Critical Care Time Critical Care Time: Yes Total Critical Care Time: 35 Discharge Plan Discharge Clinical Impression: Acute cholecystitis Patient Disposition: Still a Patient Condition: Stable Instructions: Antibiotic Form Patient Language: Comoran Prescriptions: No Action meclizine [Antivert] 50 mg tablet 50 mg PO TID PRN (Reason: dizziness) Qty: 30 0RF fluticasone propionate 50 mcg/actuation spray,suspension See Rx Instructions .ROUTE .COMPLEX Qty: 48 2RF Dose Instruction: USE 1 SPRAY INTO EACH NOSTRIL TWICE DAILY Rx Instructions: USE 1 SPRAY INTO EACH NOSTRIL TWICE DAILY Follow-up/Referrals: Arnel Hernández MD [Primary Care Provider] - Time of Disposition: 06:54
--- OUTSIDE RECORDS SUMMARY | 2025-02-20 05:21 | XMS_ITS | Continuity of Care Document ---
Author Organization [facility] Address [address] [place] [address] [address] [place] [address] Phone Care Team Providers Care Gold Layer Name Role Phone Ezio PT, DPT, Tito [...] Diagnoses Date Provider Providers Copied on Encounter [facility] [facility], [place], [place], [id number], tel:[phone] [facility] Radiculopathy, lumbar regionLumbago with sciatica, right side Ezio Sofia . Referring Provider: Jonnathan Lui , [address], [address]. tel:[phone] [facility] [address] [facility] [address], [place], [place], [id number], tel:[phone] [facility] Radiculopathy, lumbar regionLumbago with sciatica, right side Berhane Rahman. [address] [facility], [address], [place], [address], [place]. tel:[phone] Referring Provider: Jonnathan Lui , [address], [place], [address]. tel:[phone] [facility] [address] [facility] [address], [place], [place], [id number], tel:[phone] [facility] Radiculopathy, lumbar regionLumbago with sciatica, right side Amira Burciaga. [address] [facility], [address], [place], [place], [facility], . tel:[phone] Referring Provider: Jonnathan Lui , [address], [place], [address]. tel:[phone] [place] [address] [address], [place], [place], [id number], tel:[phone] [facility] Radiculopathy, lumbar regionLumbago with sciatica, right side Ezio Mckay Referring Provider: Jonnathan Lui , [address] [facility] [address], [place], [address]. tel:[phone] [facility] [address] [facility] [address], [place], [place], [id number], tel:[phone] [facility] Radiculopathy, lumbar regionLumbago with sciatica, right side Amira Burciaga. [address] [facility], [address], [place], [address], . tel:[phone] Referring Provider: Jonnathan Lui , [address] [facility] [address], [place], [address]. tel:[phone] [facility] [address] [facility], [place], [place], [id number], tel:[phone] [facility] Radiculopathy, lumbar regionLumbago with sciatica, right side Amira Burciaga. [address] [facility], [address], [place], [address], . tel:[phone] Referring Provider: Jonnathan Lui , [address] [facility] [address], [place], [address]. tel:[phone] [address] [facility] [address], [place], [place], [address], [place] tel:[phone] [facility] Radiculopathy, lumbar regionLumbago with sciatica, right side Berhane Rahman. [address] [facility], [address], [place], [place], [facility], . tel:[phone] Referring Provider: Jonnathan Lui , [address] [facility] [address], [place], [address]. tel:[phone] [facility] [facility] [address], [place], [place], [id number], [place] tel:[phone] [facility] Radiculopathy, lumbar regionLumbago with sciatica, right side Ezio Francis. . Referring Provider: Jonnathan Lui , [address] [facility] [address], [place], [address]. tel:[phone] [facility] [facility] [address], [place], [place], [id number], [place] tel:[phone] [facility] Radiculopathy, lumbar regionLumbago with sciatica, right side Ezio Francis. . Referring Provider: Jonnathan Lui , [address] [facility] [address], [place], [address]. tel:[phone] [facility], [address] [facility], [place], [place], [id number], [place] tel:[phone] [facility] Radiculopathy, lumbar regionLumbago with sciatica, right side Ezio Francis. . Referring Provider: Jonnathan Lui , [address] [facility] [address], [place], [address]. tel:[phone] [facility] [facility] [address], [place], [place], [id number], [place] tel:[phone] [facility] Radiculopathy, lumbar regionLumbago with sciatica, right side Berhane Rahman. [address] [facility], [address], [place], [address], [place]. tel:[phone] Referring Provider: Jonnathan Lui , [address], [place], [address]. tel:[phone] [facility], [address] [facility], [place], [place], [id number], tel:[phone] [facility] Radiculopathy, lumbar regionLumbago with sciatica, right side Berhane Rahman. [address] [facility], [address], [place], [address], [place]. tel:[phone] Referring Provider: Jonnathan Lui , [address] [facility] [address], [place], [address]. tel:[phone] [facility] [address] [facility], [place], [id number], [place] tel:[phone] [facility] Radiculopathy, lumbar regionLumbago with sciatica, right side Ezio Sofia . Referring Provider: Jonnathan Lui , [address] [facility] [address], [place], [address]. tel:[phone] [facility], [address] [facility], [place], [place], [id number], [place] tel:[phone] [facility] Radiculopathy, lumbar regionLumbago with sciatica, right side Berhane Rahman. [address] [facility], [address], [place], [address], [place]. tel:[phone] Referring Provider: Jonnathan Lui , [address] [facility] [address], [place], [address]. tel:[phone] [facility], [address] [facility], [place], [id number], [place] tel:[phone] [facility] Radiculopathy, lumbar regionLumbago with sciatica, right side Ezio Francis. . Referring Provider: Jonnathan Lui , [address] [facility] [address], [place], [address]. tel:[phone] [facility], [address] [facility] [address], [place], [place], [id number], [place] tel:[phone] [facility] Radiculopathy, lumbar regionLumbago with sciatica, right side Jose Hackett [address] [facility], [address], [place], [address], [place]. tel:[phone] Referring Provider: Jonnathan Lui , [address] [facility] [address], [place], [address]. tel:[phone] Family History Family Member Type Diagnosis Age At Onset No Information Payers Payer name Insurance type Covered republican ID Authorcony smith(s) [facility] Faye TRENT [id number] Social History Type Description Quantity Date Captured [...]
[2025-02-20] MEDS: MORPHINE SULFATE (*CRX) 4 MG/ML INJ IV PUSH (05:40)
[2025-02-20] MEDS: LACTATED RINGERS 1,000 ML 999 ML IV CONT (05:40)
[2025-02-20] MEDS: ONDANSETRON INJ 4 MG/2 ML VIAL IV PUSH (05:40)
[2025-02-20 05:56] LABS: Hematocrit 46.3 % (42.0-52.0); Hemoglobin 15.6 g/dL (14.0-18.0); Immature Granulocyte Percent A 0.6 % (0-0.5); Lymphocytes Absolute Auto 0.66 K/mm3 (0.9-3.2); Mean Corpuscular HGB Conc 33.7 g/dl (32-36); Mean Corpuscular Hemoglobin 29.5 pg (26-34); Mean Corpuscular Volume 87.7 fl (80-100); Nucleated Red Blood Cells Absolute Auto 0.000 K/mm3 (0.0-0.012); Nucleated Red Blood Cells Perc 0.0 % (0.0-0.2); Platelet Count Result 249 k/mm3 (150-375); Red Blood Count 5.28 M/mm3 (4.6-6.20); White Blood Count 16.4 K/mm3 (4.5-10.0)
[2025-02-20 06:06] LABS: Alanine Aminotransferase 43 U/L (6-50); Albumin Level 4.6 g/dL (3.5-5.1); Alkaline Phosphatase 76 U/L (38-126); Anion Gap 12 mmol/L (4-12); Aspartate Amino Transferase 28 U/L (17-59); Bilirubin,Total 2.0 mg/dL (0.2-1.3); Blood Urea Nitrogen 12 mg/dL (9-20); Calcium 9.1 mg/dL (8.4-10.2); Carbon Dioxide 23 mmol/L (22-30); Chloride 103 mmol/L (98-107); Estimated CRCL calculation 114 ml/min; Estimated Glomerular Filt Rate > 60; Glucose 166 mg/dL (65-110); Potassium 4.0 mmol/L (3.4-5.0); Sodium 138 mmol/L (137-145); Total Protein 8.0 g/dL (6.3-8.2)
[2025-02-20] MEDS: HYDROmorphone HCL INJ (*CRX) 2 MG/ML VIAL 1 MG IV PUSH (06:25)
[2025-02-20 06:35] LABS: Add Urine Microscopic? YES; Appearance Urine Clear (Clear); Glucose Urine UA Negative (Negative); Leukocyte Esterase Ur Negative LEU/UL (Negative); Nitrate Urine Negative (Negative); Non Pathogenic Casts 0-2; Specific Grav Ur 1.028 (1.001-1.035)
[2025-02-20] MEDS: PIPERACILLIN/TAZOBACTAM SOD 4.5 GM in SODIUM CHLORIDE 0.9% IV 100 ML 200 ML IVPB (06:56)
--- NOTE | 2025-02-20 08:25 | ADMGEN ---
This patient, Trey Flynn, was admitted to 2 Medical Room 255-01. Patient/family oriented to hospital policies and general routines including ID bracelet, bed and alarms, visiting hours, pain management, procedures, bathroom and other care routines, personal items, smoking policy, room service/diet, and visiting hours. Information on how to activate the Rapid Response Team has been discussed. Patient/Family are encouraged to report perceived risks to care and to ask questions if they do not understand what they are told or what they should do.
[2025-02-20] MEDS: HYDROcodone/acetaminophen (*CRX) 5-325 MG TABLET 1 TAB PO ×2 (10:45→17:14)
--- NOTE | 2025-02-20 11:54 | PM.IMHP ---
H&P: HPI History of Present Illness Date/Time: 02/20/25 11:54 Chief Complaint: abdominal pain Narrative: The patient is a 54-year-old male presenting to the emergency department complaining of severe right upper quadrant, epigastric abdominal pain. The patient reports the pain has been present intermittently for the last few days. The patient reports the pain became more severe and constant he yesterday prompting his visit to the emergency department. The patient reports associated bloating, nausea, emesis. The patient reports poor appetite. The patient reports mild reflux symptoms in the past, however nothing this severe. Of note, the patient reports since admission that his symptoms have largely resolved. Review of Systems Review of Systems: All systems reviewed & are unremarkable except as noted in HPI and below PMFSH Past Medical History Medical History Chronic ethmoidal sinusitis Chronic maxillary sinusitis Dizziness Chronic low back pain without sciatica Backache, unspecified Hyperglycemia History of right inguinal hernia Mumps Chicken pox Surgical History Surgical History History of right inguinal hernia repair Family History Family History Sibling Liver cancer Father , 85 Liver cancer Social History Social History Social History: Caffeine-occasionally Smoking status: Never smoker Second hand tobacco smoke exposure: No Alcohol intake: never Substance use: never Substance use type: does not use Do You Feel Safe in your Home?: Yes Lack of Transportation: No Lack of Food: Never True Current Housing: I Have Housing Concerned About Future Housing: No Difficulty Paying Gas/Electric Bills: No Difficulty Paying for Meds: No Currently Unemployed: No Education: Grade School Difficulty w/ Childcare or Family Care: No Occupation/Education: occupation Gender identity (if verbalized by the patient): Male Spiritual care concerns: No Meds Home Medications and Allergies Home Medications ?Medication ?Instructions ?Recorded ?Confirmed ?Type meclizine 50 mg tablet (Antivert) 50 mg PO TID PRN dizziness #30 tabs 08/30/24 02/20/25 Rx Allergies Allergy/AdvReac Type Severity Reaction Status Date / Time No Known Allergies Allergy Verified 02/20/25 08:26 Vital Signs Vital Signs - 24 hr 02/20/25 05:08 02/20/25 06:58 02/20/25 08:02 Temperature 36.3 C L 36.9 C Pulse Rate 109 H 86 87 Respiratory Rate 18 18 16 Blood Pressure 173/97 H 175/92 H 172/71 H Pulse Oximetry 97 99 95 Oxygen Delivery Room Air 02/20/25 09:00 Temperature Pulse Rate Respiratory Rate Blood Pressure Pulse Oximetry Oxygen Delivery Room Air Exam Const: General: cooperative, comfortable, no acute distress and obese HENMT: Head: normal to inspection, normocephalic and atraumatic Eyes: General: appearance normal, both eyes and all related structures Neck: Neck: normal visual inspection, full ROM and no lymphadenopathy Resp: Auscultation: clear to auscultation bilaterally Cardio: Rate: regular rate Rhythm: regular rhythm GI: Inspection: normal to inspection and non-distended GI Palp: Yes abdominal tenderness, Yes Soft to palpation, Yes Tenderness to palpation present (GI), No Guarding due to palpation present (GI) and No Rigid due to palpation Skin: General skin exam: normal color and no rashes or lesions noted Neuro: General: patient oriented x3 and CN's II-XI intact bilaterally Extrem: General: normal to inspection and full ROM H&P: Results Labs Labs: Short CBC 02/20/25 Range/Units 05:24 WBC 16.4 H (4.5-10.0) K/mm3 Hgb 15.6 (14.0-18.0) g/dL Hct 46.3 (42.0-52.0) % Plt Count 249 (150-375) k/mm3 BMP 02/20/25 05:24 Sodium 138 Potassium 4.0 Chloride 103 Carbon Dioxide 23 BUN 12 Creatinine 0.75 Glucose 166 H Calcium 9.1 Liver Function 02/20/25 Range/Units 05:24 Total Bilirubin 2.0 H (0.2-1.3) mg/dL AST 28 (17-59) U/L ALT 43 (6-50) U/L Alkaline Phosphatase 76 (38-126) U/L Albumin 4.6 (3.5-5.1) g/dL Urine 02/20/25 Range/Units 06:24 Urine Color Dark yellow (Yellow) Urine Appearance Clear (Clear) Urine pH 6.5 (5.0-9.0) Ur Specific [place] 1.028 (1.001-1.035) Urine Protein 2+ H (Negative) mg/dL Urine Glucose (UA) Negative (Negative) mg/dL Imaging CT scan - abdomen: My impression: Acute cholecystitis, cholelithiasis Assessment and Plan Assessment and plan (1) Acute cholecystitis: Code(s): K81.0 - Acute cholecystitis Status: Acute Assessment and Plan: exam benign, will advance to low-fat diet as tolerated, recheck labs in the morning, continue IV antibiotics, NPO after midnight in case more urgent intervention is necessary
[2025-02-21 05:22] LABS: Hematocrit 45.7 % (42.0-52.0); Hemoglobin 14.9 g/dL (14.0-18.0); Mean Corpuscular HGB Conc 32.6 g/dl (32-36); Mean Corpuscular Hemoglobin 29.3 pg (26-34); Mean Corpuscular Volume 90.0 fl (80-100); Platelet Count Result 209 k/mm3 (150-375); Red Blood Count 5.08 M/mm3 (4.6-6.20); White Blood Count 21.2 K/mm3 (4.5-10.0)
[2025-02-21 05:39] LABS: Alanine Aminotransferase 101 U/L (6-50); Albumin Level 4.1 g/dL (3.5-5.1); Alkaline Phosphatase 80 U/L (38-126); Anion Gap 10 mmol/L (4-12); Aspartate Amino Transferase 68 U/L (17-59); Bilirubin,Total 2.8 mg/dL (0.2-1.3); Blood Urea Nitrogen 12 mg/dL (9-20); Calcium 8.9 mg/dL (8.4-10.2); Carbon Dioxide 22 mmol/L (22-30); Chloride 103 mmol/L (98-107); Estimated CRCL calculation 115 ml/min; Estimated Glomerular Filt Rate > 60; Glucose 142 mg/dL (65-110); Potassium 4.0 mmol/L (3.4-5.0); Sodium 135 mmol/L (137-145); Total Protein 7.5 g/dL (6.3-8.2)
[2025-02-21 05:48] VITALS: BP 131/82; PULSE 93; RESP 16; TEMP 36.9; O2SAT 95
[2025-02-21 09:00] LABS: Lipase 23 U/L (23-300)
--- NOTE | 2025-02-21 09:45 | P.PNGS_ITS ---
Progress Note: A&P Assessment and Plan (1) Acute cholecystitis: Code(s): K81.0 - Acute cholecystitis Status: Acute Assessment and Plan: * WBC count up to 21,000 and total bilirubin up to 2.8. He is still not having much pain. * Will add IV Zosyn * MRCP ordered * Keep him NPO for now * Will eventually need a laparoscopic cholecystectomy, but will decide timing of surgery depending on MRCP results. If there is evidence of choledocholithiasis, then we will consult GI. (2) Transaminitis: Code(s): R74.01 - Elevation of levels of liver transaminase levels Status: Acute Assessment and Plan: * LFTs going up with total bilirubin up to 2.8. Will evaluate for common duct stone with MRCP. Trend labs. Could also be related to acute cholecystitis. Plan I have discussed the patient's case and plan of care with Dr. Shannon. Subjective Subjective Date/Time Seen: 02/21/25 09:45 Patient reports: no new complaints Interval history: Patient reports having mild right upper quadrant tenderness. Not much pain this morning. No nausea or vomiting. He is currently NPO. Exam Const: General: comfortable and no acute distress GI: Inspection: non-distended GI Palp: Yes Soft to palpation, Yes Tenderness to palpation present (GI) (RUQ, epigastric area, LUQ), No Guarding due to palpation present (GI) and No Rebound tenderness present Auscultation: normal bowel sounds Objective Data Vital Signs Vital Signs: Vital Signs - 24 hr 02/20/25 12:07 02/20/25 14:00 02/20/25 20:15 Temperature 98.2 F Pulse Rate 77 Respiratory Rate 18 Blood Pressure 144/77 H Pulse Oximetry 94 96 Oxygen Delivery Room Air Room Air Fraction of Inspired Oxygen 02/20/25 20:48 02/20/25 21:27 02/21/25 05:48 Temperature 98.5 F 98.5 F Pulse Rate 88 82 93 Respiratory Rate 18 20 16 Blood Pressure 137/75 131/82 Pulse Oximetry 96 92 95 Oxygen Delivery Room Air Fraction of Inspired Oxygen 21 Intake/Output Intake/Output: Intake & Output 02/18/25 02/19/25 02/20/25 02/21/25 23:59 23:59 23:59 23:59 Intake Total 1770 200 Balance 1770 200 Meds/Results Medications: Active Medications Generic Name Dose Route Start Last Admin Trade Name Abhiq PRN Reason Stop Dose Admin Acetaminophen 650 mg 02/20/25 06:48 Acetaminophen 325 Mg Tablet PO Q4H PRN Mild Pain (1-3) or Fever Hydrocodone Bitart/Acetaminophen 1 tab 02/20/25 06:48 02/20/25 17:14 Hydrocodone/Acetaminophen (*Crx) 5-325 Mg Tablet PO 1 tab Q4H PRN Administration Pain Rated 4-6 Hydromorphone HCl 0.5 mg 02/20/25 06:48 Hydromorphone Hcl Inj (*Crx) 2 Mg/Ml Vial IV PUSH Q4H PRN Pain Rated 7-10 Sodium Chloride 1,000 mls @ 100 mls/hr 02/21/25 08:25 Normal Saline Iv IV CONT .Q10H BRIAN Ondansetron HCl 4 mg 02/20/25 06:48 Ondansetron Inj 4 Mg/2 Ml Vial IV PUSH Q4H PRN Nausea Radiology Results: ITS Impressions Abdomen/Pelvis CT 02/20/25 06:45 IMPRESSION: 1. Single 2 mm nonobstructing stone at the lower pole of the left kidney. Could not exclude mild caliectasis at the left kidney without evident obstructing lesion although would favor peripelvic cysts. This could be differentiated with CT urogram with delayed postcontrast imaging. 2. Cholelithiasis without suggestion of acute cholecystitis.. 3. No other acute intra-abdominal/pelvic process. Specifically the appendix is normal. 4. Small sliding-type hiatal hernia. 5. Small fat-containing umbilical hernia. Labs Labs: Laboratory Results - last 24 hr 02/21/25 04:53 WBC 21.2 H RBC 5.08 Hgb 14.9 Hct 45.7 MCV 90.0 MCH 29.3 MCHC 32.6 RDW 13.0 Plt Count 209 MPV 10.4 Sodium 135 L Potassium 4.0 Chloride 103 Carbon Dioxide 22 Anion Gap 10 BUN 12 Creatinine 0.74 Estim Creat Clear Calc 115 Estimated GFR > 60 Glucose 142 H Calcium 8.9 Total Bilirubin 2.8 H AST 68 H ALT 101 H Alkaline Phosphatase 80 Total Protein 7.5 Albumin 4.1 Lipase 23
[2025-02-21] MEDS: SODIUM CHLORIDE 0.9% IV 1,000 ML 100 ML IV CONT (10:05)
[2025-02-21] MEDS: PIPERACILLIN/TAZOBACTAM SOD 3.375 GM in SODIUM CHLORIDE 0.9% IV 50 ML 100 ML IVPB ×2 (13:36→18:53)
[2025-02-21 14:00] VITALS: BP 150/81; PULSE 83; RESP 20; TEMP 37.2; O2SAT 95
[2025-02-21 21:40] VITALS: PULSE 88; RESP 20; O2SAT 98
[2025-02-21 22:00] VITALS: BP 141/81; PULSE 74; RESP 18; TEMP 36.8; O2SAT 96
[2025-02-22] VITALS (14 sets, daily range): BP systolic 115–148; BP diastolic 67–87; PULSE 79–95; RESP 16–24; TEMP 36.5–37.8; O2SAT 94–100
[2025-02-22] MEDS: SODIUM CHLORIDE 0.9% IV 1,000 ML 100 ML IV CONT (00:22)
[2025-02-22] MEDS: PIPERACILLIN/TAZOBACTAM SOD 3.375 GM in SODIUM CHLORIDE 0.9% IV 50 ML 100 ML IVPB ×3 (00:23→12:10)
[2025-02-22 05:22] LABS: Hematocrit 42.0 % (42.0-52.0); Hemoglobin 13.8 g/dL (14.0-18.0); Mean Corpuscular HGB Conc 32.9 g/dl (32-36); Mean Corpuscular Hemoglobin 29.8 pg (26-34); Mean Corpuscular Volume 90.7 fl (80-100); Platelet Count Result 207 k/mm3 (150-375); Red Blood Count 4.63 M/mm3 (4.6-6.20); White Blood Count 14.4 K/mm3 (4.5-10.0)
[2025-02-22 05:32] LABS: INR 1.3; Prothrombin Time 16.2 Seconds (11.1-14.7)
[2025-02-22 05:33] LABS: Partial Thromboplastin Time 33.8 Seconds (22.3-36.8)
[2025-02-22 05:43] LABS: Alanine Aminotransferase 58 U/L (6-50); Albumin Level 3.6 g/dL (3.5-5.1); Alkaline Phosphatase 69 U/L (38-126); Anion Gap 7 mmol/L (4-12); Aspartate Amino Transferase 25 U/L (17-59); Bilirubin,Total 1.5 mg/dL (0.2-1.3); Blood Urea Nitrogen 14 mg/dL (9-20); Calcium 8.6 mg/dL (8.4-10.2); Carbon Dioxide 22 mmol/L (22-30); Chloride 106 mmol/L (98-107); Estimated CRCL calculation 122 ml/min; Estimated Glomerular Filt Rate > 60; Glucose 127 mg/dL (65-110); Potassium 4.0 mmol/L (3.4-5.0); Sodium 135 mmol/L (137-145); Total Protein 6.8 g/dL (6.3-8.2)
--- NOTE | 2025-02-22 11:17 | P.PNGS_ITS ---
Progress Note: A&P Assessment and Plan (1) Acute cholecystitis: Code(s): K81.0 - Acute cholecystitis Status: Acute Assessment and Plan: * MRCP showed findings consistent with acute cholecystitis, but no choledoc holithiasis or biliary ductal dilatation. WBC count and LFTs trending down today. * Discussed both options of proceeding with laparoscopic cholecystectomy by Dr. Shannon today verses attempting to advance his diet and following up as an outpatient for interval cholecystectomy. Patient wishes to proceed with surgery today. Description of the procedure, risks, benefits, alternatives, and expected recovery were discussed with the patient in detail. We discussed the risks of bile leak and bile duct injury, liver/bowel injury, bleeding, and infection. Also discussed the possibility of having to convert to an open procedure if necessary. All questions answered and patient agrees to proceed. * Continue IV Zosyn * Remain NPO and plan to go to OR later today for cholecystectomy (2) Transaminitis: Code(s): R74.01 - Elevation of levels of liver transaminase levels Status: Acute Assessment and Plan: * MRCP showed no choledocholithiasis. LFTs trending down. Likely related to cholecystitis. See plan above. Trend labs. Plan I have discussed the patient's case and plan of care with Dr. Shannon. Subjective Subjective Date/Time Seen: 02/22/25 11:17 Patient reports: no new complaints Interval history: Patient denies any abdominal pain today, but still has tenderness in the right upper quadrant. He reports feeling ?sore?. No nausea or vomiting. Currently NPO for possibility of surgery today. Exam Const: General: comfortable and no acute distress GI: Inspection: non-distended GI Palp: Yes Soft to palpation, Yes Tenderness to palpation present (GI) (Right upper quadrant), No Guarding due to palpation present (GI) and No Rebound tenderness present Objective Data Vital Signs Vital Signs: Vital Signs - 24 hr 02/21/25 14:00 02/21/25 20:00 02/21/25 21:40 Temperature 98.9 F Pulse Rate 83 88 Respiratory Rate 20 20 Blood Pressure 150/81 H Pulse Oximetry 95 98 Oxygen Delivery Room Air Room Air Fraction of Inspired Oxygen 21 02/21/25 22:00 02/22/25 06:00 02/22/25 08:00 Temperature 98.3 F 98.1 F Pulse Rate 74 79 Respiratory Rate 18 18 Blood Pressure 141/81 H 136/84 Pulse Oximetry 96 97 Oxygen Delivery Room Air Fraction of Inspired Oxygen Intake/Output Intake/Output: Intake & Output 02/19/25 02/20/25 02/21/25 02/22/25 23:59 23:59 23:59 23:59 Intake Total 1770 1300 100 Balance 1770 1300 100 Meds/Results Medications: Active Medications Generic Name Dose Route Start Last Admin Trade Name Freq PRN Reason Stop Dose Admin Acetaminophen 650 mg 02/20/25 06:48 Acetaminophen 325 Mg Tablet PO Q4H PRN Mild Pain (1-3) or Fever Hydrocodone Bitart/Acetaminophen 1 tab 02/20/25 06:48 02/20/25 17:14 Hydrocodone/Acetaminophen (*Crx) 5-325 Mg Tablet PO 1 tab Q4H PRN Administration Pain Rated 4-6 Hydromorphone HCl 0.5 mg 02/20/25 06:48 Hydromorphone Hcl Inj (*Crx) 2 Mg/Ml Vial IV PUSH Q4H PRN Pain Rated 7-10 Sodium Chloride 1,000 mls @ 100 mls/hr 02/21/25 08:25 02/22/25 00:22 Normal Saline Iv IV CONT 100 mls/hr .Q10H BRIAN Administration Piperacillin Sod/Tazobactam 50 mls @ 100 mls/hr 02/21/25 12:30 02/22/25 06:36 Sod 3.375 gm/ Sodium Chloride IVPB Infused Q6HR BRIAN Infusion Ondansetron HCl 4 mg 02/20/25 06:48 Ondansetron Inj 4 Mg/2 Ml Vial IV PUSH Q4H PRN Nausea Radiology Results: ITS Impressions Abdomen/Pelvis CT 02/20/25 06:45 IMPRESSION: 1. Single 2 mm nonobstructing stone at the lower pole of the left kidney. Could not exclude mild caliectasis at the left kidney without evident obstructing lesion although would favor peripelvic cysts. This could be differentiated with CT urogram with delayed postcontrast imaging. 2. Cholelithiasis without suggestion of acute cholecystitis.. 3. No other acute intra-abdominal/pelvic process. Specifically the appendix is normal. 4. Small sliding-type hiatal hernia. 5. Small fat-containing umbilical hernia. MRCP 02/21/25 13:02 IMPRESSION: 1. Lithiasis with gallbladder wall thickening and some pericholecystic edema suspicious for acute cholecystitis although the gallbladder is not frankly d ilated. Could consider HIDA scan for more definitive determination as clinically indicated. 2. No choledocholithiasis with no intra or extra hepatic biliary ductal dilation. 2. Persistent mild left hydronephrosis without delayed or decreased nephrogram which is of indeterminate etiology. Labs Labs: Laboratory Results - last 24 hr 02/22/25 05:05 WBC 14.4 H RBC 4.63 Hgb 13.8 L Hct 42.0 MCV 90.7 MCH 29.8 MCHC 32.9 RDW 13.0 Plt Count 207 MPV 10.0 PT 16.2 H INR 1.3 APTT 33.8 Sodium 135 L Potassium 4.0 Chloride 106 Carbon Dioxide 22 Anion Gap 7 BUN 14 Creatinine 0.70 Estim Creat Clear Calc 122 Estimated GFR > 60 Glucose 127 H Calcium 8.6 Total Bilirubin 1.5 H AST 25 ALT 58 H Alkaline Phosphatase 69 Total Protein 6.8 Albumin 3.6 Blood Type O Positive Antibody Screen Negative
--- NOTE | 2025-02-22 13:46 | WPDHPUPDATE1 ---
History and Physical Update Update Date/Time: 02/22/25 13:46 History and Physical has been reviewed, including an updated exam of the patient. There are NO changes in the patient's condition. Risks, benefits, and alternatives have been discussed and questions answered. Patient agrees to proceed with procedure.
[2025-02-22] MEDS: ACETAMINOPHEN 325 MG TABLET 650 MG PO (13:51)
--- NOTE | 2025-02-22 14:37 | P.PNAN_ITS ---
Anes - Initial Pre Proc Eval Procedure: Operation Date: 02/22/25 15:45 Proposed Procedures p Laparoscopic Cholecystectomy, Possible Open - Ailyn Shannon MD Date/Time: 02/22/25 14:37 Surgeon: Ailyn Shannon MD Pre Op Diagnosis: acute cholecystitis Patient Data Age: 54 Gender: M Height: 1.68 m Weight: 108.6 kg Last Vital Signs Temp 37.2 C 02/22/25 14:28 Pulse 84 02/22/25 14:28 Resp 16 02/22/25 14:28 BP 148/81 H 02/22/25 14:28 Pulse Ox 96 02/22/25 14:28 O2 Del Method Room Air 02/22/25 14:28 FiO2 21 02/21/25 21:40 Allergies Allergy/AdvReac Type Severity Reaction Status Date / Time No Known Allergies Allergy Verified 02/22/25 14:24 Home Medications ?Medication ?Instructions ?Recorded ?Confirmed ?Type meclizine 50 mg tablet (Antivert) 50 mg PO TID PRN dizziness #30 tabs 08/30/24 02/20/25 Rx Laboratory Tests 02/22/25 05:05 WBC 14.4 H K/mm3 (4.5-10.0) RBC 4.63 M/mm3 (4.6-6.20) Hgb 13.8 L g/dL (14.0-18.0) Hct 42.0 % (42.0-52.0) MCV 90.7 fl (80-100) MCH 29.8 pg (26-34) MCHC 32.9 g/dl (32-36) RDW 13.0 % (11.5-14.5) Plt Count 207 k/mm3 (150-375) MPV 10.0 fl (7.4-10.4) PT 16.2 H Seconds (11.1-14.7) INR 1.3 APTT 33.8 Seconds (22.3-36.8) Sodium 135 L mmol/L (137-145) Potassium 4.0 mmol/L (3.4-5.0) Chloride 106 mmol/L (98-107) Carbon Dioxide 22 mmol/L (22-30) Anion Gap 7 mmol/L (4-12) BUN 14 mg/dL (9-20) Creatinine 0.70 mg/dL (0.7-1.3) Estim Creat Clear Calc 122 ml/min Estimated GFR > 60 (59 - ) Glucose 127 H mg/dL (65-110) Calcium 8.6 mg/dL (8.4-10.2) Total Bilirubin 1.5 H mg/dL (0.2-1.3) AST 25 U/L (17-59) ALT 58 H U/L (6-50) Alkaline Phosphatase 69 U/L (38-126) Total Protein 6.8 g/dL (6.3-8.2) Albumin 3.6 g/dL (3.5-5.1) Blood Type O Positive Antibody Screen Negative Patient hx anesthesia problems: none Family hx anesthesia problems: none Results Review: All pre-operative results and documents have been reviewed as part of the pre- operative evaluation. [facility] Past Medical History Medical History Chronic ethmoidal sinusitis Chronic maxillary sinusitis Dizziness Chronic low back pain without sciatica Backache, unspecified Hyperglycemia History of right inguinal hernia Mumps Chicken pox Surgical History Surgical History History of right inguinal hernia repair Family History Family History Sibling Liver cancer Father , 85 Liver cancer Social History Social History Social History: Caffeine-occasionally Smoking status: Never smoker Second hand tobacco smoke exposure: No Alcohol intake: never Substance use: never Substance use type: does not use Do You Feel Safe in your Home?: Yes Lack of Transportation: No Lack of Food: Never True Current Housing: I Have Housing Concerned About Future Housing: No Difficulty Paying Gas/Electric Bills: No Difficulty Paying for Meds: No Currently Unemployed: No Education: Grade School Difficulty w/ Childcare or Family Care: No Occupation/Education: occupation Gender identity (if verbalized by the patient): Male Spiritual care concerns: No Anes - Eval Final PreProcedure Day of Procedure 02/22/25 14:37 Patient weight: obese Heart: regular rate and rhythm Lungs: clear to auscultation Airway: Mallampati scale class II Neurological: alert and oriented Last oral intake: >/= 8 hours ASA classification: II Emergent: no Anesthetic plan: proceed Anesthesia type and monitoring: general ETT and standard monitoring Results Review: All pre-operative results and documents have been reviewed as part of the pre- operative evaluation. Informed Consent: The patient's anesthetic plan and its attendant risks and benefits were discussed with the patient/family/POA. Questions were solicited and answers provided to the satisfaction of the patient/family/POA.
[2025-02-22] MEDS: LACTATED RINGERS 1,000 ML 30 ML IV CONT (14:46)
--- NOTE | 2025-02-22 16:20 | S_PTH ---
PATIENT: Trey Ngo LOC: [id number] U#:[id number] AGE/SX: 54/M ROOM: 255 RE02/20/[address]: Linda Perez PA-C : 1970 BED: 01 DIS: 02/23/2025 SPEC #: [id number] RECD: 02/23/25 08:00 STATUS: REINALDO LYONS #: [id number] JAY JAY: 02/22/25 16:[address]: Ailyn Shannon DEPT: [facility] Surgical RECD BY: Giselle Underwood ENTERED: 02/23/25 08:00 SP TYPE: Surgical OTHR DR: Arnel Hernández MD Tissues: A - Gallbladder Procedures: Hematoxylin and Eosin Stain Gross and Microscopic Level 3
--- NOTE | 2025-02-22 16:33 | P.OP_ITS ---
Procedure Note - Detailed Date of Procedure 02/22/25 Pre-op Diagnosis acute cholecystitis, cholelithiasis Post-op Diagnosis Same Procedure Performed Laparoscopic cholecystectomy Surgeon Ailyn Shannon MD Anesthesia General Indications 54-year-old male presenting with severe acute cholecystitis, cholelithiasis Findings severe acute cholecystitis, cholelithiasis Description of Procedure The patient was taken to the operating room placed in the supine position. After adequate induction of general anesthesia, the patient was prepped and draped in normal sterile fashion. A time-out was then performed to verify the patient's identity as well as the procedure being performed. I then made a 5 mm incision in the infraumbilical region. Through this, a Veress needle was placed into the peritoneal cavity and CO2 gas was then insufflated. After adequate pneumoperitoneum was achieved, the Veress needle was removed and a 5 mm optiview trocar was placed through this incision under direct visualization. I then placed the laparoscope through this trocar site and under direct visualization placed a further 12 mm subxiphoid port as well as 2 additional 5 mm ports in the right upper abdomen. The gallbladder was then identified and was noted to be severely inflamed, distended, and full of gallstones. Given the severity of the inflammation and distention, the gallbladder was decompressed to allow juan pulation. Once decompressed, I was able to place a grasper at the dome of the gallbladder and this was retracted anterior and cephalad up over the liver. A 2nd retractor was then placed at the infundibulum and retracted laterally, this allowed visualization of the triangle of Calot. I then was able to visualize the cystic duct in its entirety from its proximal insertion into the gallbladder, to its distal junction with the common hepatic/common bile duct junction. At this point, I carefully skeletonized the proximal cystic duct with the [place] dissector. I then clipped and transected the proximal cystic duct. Next I visualized the cystic artery. Again the artery was skeletonized, clipped, and transected. I then used the Bovie cautery to take down the peritoneal attachments of the gallbladder off the liver bed. This was difficult given the amount of inflammation in the posterior space. Once the gallbladder specimen was completely detached, an endo-pouch was placed through the 12 mm port site. I then placed the gallbladder specimen into the Endo pouch and removed the endo-pouch from the 12 mm port site. The specimen will now be sent to pathology for further review. I then copiously irrigated the right upper quadrant. Some mild oozing was noted in the liver bed and this was controlled with the bovie cautery. I then placed some hemostatic powder in the liver bed. Hemostasis was noted in the liver bed, the clips were noted to be in good position on both the cystic duct stump and the cystic artery stump. No other pathology was noted in the right upper quadrant. I then moved the laparoscope to the subxiphoid port. No iatrogenic injury or other pathology was noted in the lower abdomen. I then closed the 12 mm trocar site under direct visualization using the Allen cone and 0 Vicryl suture. At this point, the abdomen was desufflated and all ports removed. All port sites were then closed with 4.O Monocryl subcuticular sutures. Dermabond was placed on each incision. The patient tolerated the procedure well, was extubated in the operating room postoperative and will be transferred to the recovery room in stable condition. Please note that given the severity of the acute cholecystitis that this case took approximately double the normal gallbladder. This is also reflected in the increased blood loss. Estimated Blood Loss 50 Drains No Packing No Pathology Yes Complications No immediate complications Condition Stable Disposition PACU [facility] Billing Surgery - Charge Forward: Surgery Billing
--- NOTE | 2025-02-22 18:00 | PC.NURSE ---
Returned from OR at 1600. Report received from LESLIE Gomez.
[2025-02-22] MEDS: HYDROcodone/acetaminophen (*CRX) 5-325 MG TABLET 1 TAB PO (19:41)
[2025-02-23] MEDS: HYDROcodone/acetaminophen (*CRX) 5-325 MG TABLET 1 TAB PO ×2 (00:12→10:01)
[2025-02-23 00:36] VITALS: BP 132/79; PULSE 77; RESP 16; TEMP 36.6; O2SAT 98
[2025-02-23 04:39] VITALS: BP 135/86; PULSE 90; RESP 16; TEMP 36.5; O2SAT 96
[2025-02-23 08:00] VITALS: BP 132/69; PULSE 86; RESP 16; TEMP 37.2; O2SAT 96
[2025-02-23 08:43] LABS: Hematocrit 45.4 % (42.0-52.0); Hemoglobin 14.8 g/dL (14.0-18.0); Mean Corpuscular HGB Conc 32.6 g/dl (32-36); Mean Corpuscular Hemoglobin 29.4 pg (26-34); Mean Corpuscular Volume 90.3 fl (80-100); Platelet Count Result 301 k/mm3 (150-375); Red Blood Count 5.03 M/mm3 (4.6-6.20); White Blood Count 13.8 K/mm3 (4.5-10.0)
[2025-02-23 09:01] LABS: Alanine Aminotransferase 118 U/L (6-50); Albumin Level 4.1 g/dL (3.5-5.1); Alkaline Phosphatase 78 U/L (38-126); Anion Gap 8 mmol/L (4-12); Aspartate Amino Transferase 71 U/L (17-59); Bilirubin,Total 1.5 mg/dL (0.2-1.3); Blood Urea Nitrogen 14 mg/dL (9-20); Calcium 9.3 mg/dL (8.4-10.2); Carbon Dioxide 27 mmol/L (22-30); Chloride 102 mmol/L (98-107); Estimated CRCL calculation 106 ml/min; Estimated Glomerular Filt Rate > 60; Glucose 118 mg/dL (65-110); Potassium 4.2 mmol/L (3.4-5.0); Sodium 137 mmol/L (137-145); Total Protein 7.9 g/dL (6.3-8.2)
--- NOTE | 2025-02-23 10:09 | P.PNGS_ITS ---
Progress Note: A&P Assessment and Plan (1) Acute cholecystitis: Code(s): K81.0 - Acute cholecystitis Status: Acute Assessment and Plan: * POD1 s/p laparoscopic cholecystectomy. Per operative note, gallbladder was severely inflamed, distended, full of gallstones. Patient doing well today. Tolerating full diet, voiding without difficulty, ambulating independently. He does endorse incisional pain to his abdomen, exacerbated with movement. * Will continue to monitor patient, and plan for discharge later today or tomorrow. (2) Transaminitis: Code(s): R74.01 - Elevation of levels of liver transaminase levels Status: Acute Assessment and Plan: * MRCP yesterday showed no choledocholithiasis. LFTs slightly more elevated today, likely postoperative reaction. Plan I have discussed the patient's case and plan of care with Dr. Shannon. Subjective Subjective Date/Time Seen: 02/23/25 10:09 Post Op day: 1 Patient reports: no new complaints Interval history: POD1 s/p laparoscopic cholecystectomy. Vital signs stable. WBC 13.8, down from 14.4. Patient is doing well. Tolerating full diet, voiding appropriately, ambulating without assistance. Notes some incisional pain. Exam Const: General: comfortable and no acute distress GI: Inspection: non-distended GI Palp: Yes Soft to palpation, Yes Tenderness to palpation present (GI) (tenderness surrounding incisions) and No Guarding due to palpation present (GI) Other: Incisions clean and dry with no signs of infection, dehiscence, or skin necrosis Objective Data Vital Signs Vital Signs: Vital Signs - 24 hr 02/22/25 13:51 02/22/25 14:00 02/22/25 14:28 Temperature 100.0 F H 100 F H 99 F Pulse Rate 81 84 Respiratory Rate 18 16 Blood Pressure 120/69 148/81 H Pulse Oximetry 96 96 Oxygen Delivery Room Air Oxygen Flow Rate 02/22/25 16:44 02/22/25 17:00 02/22/25 17:10 Temperature 98.9 F Pulse Rate 94 94 Respiratory Rate 19 22 H Blood Pressure 115/67 147/87 H Pulse Oximetry 100 98 Oxygen Delivery Simple Face Mask Simple Face Mask Room Air Oxygen Flow Rate 8 8 02/22/25 17:15 02/22/25 17:30 02/22/25 17:45 Temperature Pulse Rate 94 90 88 Respiratory Rate 18 24 H 24 H Blood Pressure 131/84 136/83 137/81 Pulse Oximetry 96 95 94 Oxygen Delivery Room Air Room Air Room Air Oxygen Flow Rate 02/22/25 18:00 02/22/25 18:20 02/22/25 18:35 Temperature 98 F 98.2 F Pulse Rate 91 95 83 Respiratory Rate 20 16 18 Blood Pressure 138/86 131/76 122/71 Pulse Oximetry 94 95 94 Oxygen Delivery Room Air Oxygen Flow Rate 02/22/25 19:42 02/22/25 20:00 02/22/25 21:39 Temperature 98.0 F 97.7 F Pulse Rate 82 79 Respiratory Rate 16 16 Blood Pressure 136/73 121/72 Pulse Oximetry 95 97 Oxygen Delivery Room Air Oxygen Flow Rate 02/23/25 00:36 02/23/25 04:39 02/23/25 08:00 Temperature 97.9 F 97.7 F 99 F Pulse Rate 77 90 86 Respiratory Rate 16 16 16 Blood Pressure 132/79 135/86 132/69 Pulse Oximetry 98 96 96 Oxygen Delivery Oxygen Flow Rate Intake/Output Intake/Output: Intake & Output 02/20/25 02/21/25 02/22/25 02/23/25 23:59 23:59 23:59 23:59 Intake Total 1770 1300 300 318 Balance 1770 1300 300 318 Meds/Results Medications: Active Medications Generic Name Dose Route Start Last Admin Trade Name Freq PRN Reason Stop Dose Admin Acetaminophen 650 mg 02/20/25 06:48 02/22/25 13:51 Acetaminophen 325 Mg Tablet PO 650 mg Q4H PRN Administration Mild Pain (1-3) or Fever Hydrocodone Bitart/Acetaminophen 1 tab 02/20/25 06:48 02/23/25 10:01 Hydrocodone/Acetaminophen (*Crx) 5-325 Mg Tablet PO 1 tab Q4H PRN Administration Pain Rated 4-6 Hydromorphone HCl 0.5 mg 02/20/25 06:48 Hydromorphone Hcl Inj (*Crx) 2 Mg/Ml Vial IV PUSH Q4H PRN Pain Rated 7-10 Ondansetron HCl 4 mg 02/20/25 06:48 Ondansetron Inj 4 Mg/2 Ml Vial IV PUSH Q4H PRN Nausea Radiology Results: ITS Impressions Abdomen/Pelvis CT 02/20/25 06:45 IMPRESSION: 1. Single 2 mm nonobstructing stone at the lower pole of the left kidney. Could not exclude mild caliectasis at the left kidney without evident obstructing lesion although would favor peripelvic cysts. This could be differentiated with CT urogram with delayed postcontrast imaging. 2. Cholelithiasis without suggestion of acute cholecystitis.. 3. No other acute intra-abdominal/pelvic process. Specifically the appendix is normal. 4. Small sliding-type hiatal hernia. 5. Small fat-containing umbilical hernia. MRCP 02/21/25 13:02 IMPRESSION: 1. Lithiasis with gallbladder wall thickening and some pericholecystic edema suspicious for acute cholecystitis although the gallbladder is not frankly dilated. Could consider HIDA scan for more definitive determination as clinically indicated. 2. No choledocholithiasis with no intra or extra hepatic biliary ductal dilation. 2. Persistent mild left hydronephrosis without delayed or decreased nephrogram which is of indeterminate etiology. Labs Labs: Laboratory Results - last 24 hr 02/23/25 08:36 WBC 13.8 H RBC 5.03 Hgb 14.8 Hct 45.4 MCV 90.3 MCH 29.4 MCHC 32.6 RDW 12.9 Plt Count 301 MPV 9.7 Sodium 137 Potassium 4.2 Chloride 102 Carbon Dioxide 27 Anion Gap 8 BUN 14 Creatinine 0.81 Estim Creat Clear Calc 106 Estimated GFR > 60 Glucose 118 H Calcium 9.3 Total Bilirubin 1.5 H AST 71 H ALT 118 H Alkaline Phosphatase 78 Total Protein 7.9 Albumin 4.1
[2025-02-23 11:33] VITALS: BP 141/62; PULSE 89; RESP 16; TEMP 37.3; O2SAT 94
--- NOTE | 2025-02-23 12:45 | P.DS_ITS ---
DS: Admitting Diagnosis Discharge Date 02/23/2025 Admitting Diagnosis Acute cholecystitis, cholelithiasis DS: Discharge Diagnosis Discharge Diagnosis (1) Acute cholecystitis: Code(s): K81.0 - Acute cholecystitis Status: Acute Assessment and Plan: POD1 s/p laparoscopic cholecystectomy. Per operative note, gallbladder was severely inflamed, distended, full of gallstones. Patient doing well today. Tolerating full diet, voiding without difficulty, ambulating independently. He does endorse incisional pain to his abdomen, exacerbated with movement. This is expected after surgery. (2) Transaminitis: Code(s): R74.01 - Elevation of levels of liver transaminase levels Status: Acute DS: Summary Hospital Course Reason for hospitalization: Patient presented to the ED with 2 days of intermittent right-sided abdominal pain and right flank pain. He had associated nausea and vomiting. Pain persisted and worsened. No fever or chills. Hospital Course: Patient was admitted to the hospital on 02/20/2025 after presenting to the ED with right upper quadrant pain with associated nausea and vomiting. Tender to palpation ED with positive Ba[place]a sign. CT scan demonstrated cholelithiasis without suggest an acute cholecystitis. Also noted were a single 2 mm nonobstructing stone in the left kidney, as well as a small sliding-type hiatal hernia and small fat containing umbilical hernia. Labs were significant for a white blood cell count of 16.4 and a bilirubin of 2.0. On 02/21 bilirubin was up to 2.8 with elevated AST and ALT. WBC up to 21.2. IV Zosyn was initiated. MRCP ordered. MRCP demonstrated findings consistent with acute cholecystitis, but no choledocholithiasis or biliary ductal dilation. WBC and LFTs trending down. Options were discussed with Dr. Montoya patient who wished to proceed with laparoscopic cholecystectomy. Procedure risks, benefits, alternatives, and expected recovery were discussed with the patient in detail. On 02/22, patient was taken to the OR for laparoscopic cholecystectomy. During the surgery the g allbladder was identified and noted to be severely inflamed, distended, full of gallstones. Given the severity, the case took approximately double the normal time, the patient was wheeled to recovery in good condition. Postop day, today, patient doing very well. Sitting up in chair tolerating breakfast without nausea or vomiting. Ambulating around the room without assistance. Voiding without difficulty. He does note some incisional pain, which is expected. Surgically stable for discharge home with follow-up in office in 2 weeks. Status at Discharge Functional status at discharge: independent ambulation Overall status at discharge: patient is back to baseline Time Spent with Patient Time attestation: Total time spent providing and/or coordinating discharge services: Time spent: Less than 30 minutes DS: Data Data Completed and Pending Pending studies at discharge: Pending at discharge 02/22/25 16:20 Surgical [PTH] Routine Labs on day of discharge: Labs from last 24 hours 02/23/25 08:36 WBC 13.8 H RBC 5.03 Hgb 14.8 Hct 45.4 MCV 90.3 MCH 29.4 MCHC 32.6 RDW 12.9 Plt Count 301 MPV 9.7 Sodium 137 Potassium 4.2 Chloride 102 Carbon Dioxide 27 Anion Gap 8 BUN 14 Creatinine 0.81 Estim Creat Clear Calc 106 Estimated GFR > 60 Glucose 118 H Calcium 9.3 Total Bilirubin 1.5 H AST 71 H ALT 118 H Alkaline Phosphatase 78 Total Protein 7.9 Albumin 4.1 Procedures/Treatments: Procedures Operation Date: 02/22/25 15:45 Actual Procedure Side Surgeon p Laparoscopic Cholecystectomy Not Applicable Ailyn Shannon MD Imaging Radiologist's impression: ITS Impressions Abdomen/Pelvis CT 02/20/25 06:45 IMPRESSION: 1. Single 2 mm nonobstructing stone at the lower pole of the left kidney. Could not exclude mild caliectasis at the left kidney without evident obstructing lesion although would favor peripelvic cysts. This could be differentiated with CT urogram with delayed postcontrast imaging. 2. Cholelithiasis without suggestion of acute cholecystitis.. 3. No other acute intra-abdominal/pelvic process. Specifically the appendix is normal. 4. Small sliding-type hiatal hernia. 5. Small fat-containing umbilical hernia. MRCP 02/21/25 13:02 IMPRESSION: 1. Lithiasis with gallbladder wall thickening and some pericholecystic edema suspicious for acute cholecystitis although the gallbladder is not frankly dilated. Could consider HIDA scan for more definitive determination as clinically indicated. 2. No choledocholithiasis with no intra or extra hepatic biliary ductal dilation. 2. Persistent mild left hydronephrosis without delayed or decreased nephrogram which is of indeterminate etiology. Discharge Plan Discharge Attending physician on discharge: Ailyn Shannon Discharging Clinician: Ailyn Shannon Patient Disposition: Home Activity: as tolerated Diet: as tolerated and low fat Wound Care Instructions: incision open to air Discharge Instructions: DISCHARGE INSTRUCTION SHEET FOR HERNIA, GALLBLADDER AND APPENDIX SURGERIES DR. SHANNON 1. May shower in 24 hours, no soaking in bath x 2weeks. 2. Call office for: * Wound increasingly painful or bleeding * Vomiting * Fever of greater than 101 degrees 3. If no bowel movement for three days, take 1 oz. (30 ml) Milk of Magnesia or MiraLax 17g 1 to 2 times daily. 4. No heavy lifting > 10-15 pounds x 6 weeks for hernia repairs and 2 weeks for laparoscopic cholecystectomy or appendectomy. 5. No driving for 3 days or while taking narcotic pain medications. 6. Ice to surgical site for 48 hours (30 min on, then 30 min off). 7. Up walking 10-30 minutes three times per day. 8. Resume previous home medications. 9. Follow-up 10-14 days in office for wound check or as previously scheduled. ([id number]) 10. Oral pain medications prescription to be sent to pharmacy. Take Tylenol 500mg every 6 hours and Ibuprofen 600mg every 6 hours for the first 2 days, then as needed. 11. NUTRITION: Start out by drinking fluids and increase your diet as tolerated. If you experience nausea, try dry toast, crackers, and 7-UP. If nausea or vomiting persists, contact your surgeon?s office. 12. Gallbladders-Low Fat Diet for 2 weeks (send care note of low fat diet) Patient Instructions: Antibiotic Form Patient Language: Bengali Stand Alone Forms: General Discharge Information Follow-up/Referrals: Ailyn Shannon MD [Physician] - 2 Weeks Discharge Medications: New hydrocodone-acetaminophen 5-325 mg tablet 1 tablet PO Q6H PRN (Reason: pain) Qty: 20 0RF Continued meclizine [Antivert] 50 mg tablet 50 mg PO TID PRN (Reason: dizziness) Qty: 30 0RF Patient Comments: couple months ago Date of admission: 02/20/25 06:48 Primary Care Provider: Arnel Hernández Admitting Provider: Ailyn Shannon Attending physician on admission: Ailyn Shannon Condition: Stable
== END 2025-02-23 12:40 | disposition home or self-care (01) | DRG 419 ==
LOC: ANHED 07:04 → ANH2MED 07:54
PROVIDERS: Nurse Practitioner Family; Admitting Provider Surgery; Emergency Provider Student in an Organized Health Care Education/Training Program; PCP Emergency Medicine
PROC: 0FT44ZZ Resection of Gallbladder, Percutaneous Endoscopic Approach (ICD-10-PCS; CPT 47562; principal; 2025-02-22 15:45)
DX: K80.00 Calculus of gallbladder with acute cholecystitis without obstruction (principal); J32.2 Chronic ethmoidal sinusitis; J32.0 Chronic maxillary sinusitis; N20.0 Calculus of kidney; M54.50 Low back pain, unspecified; G89.29 Other chronic pain
CPT/HCPCS: 36415; 74176; 74183; 76376; 80053; 81001; 83690; 85025; 85027; 85610; 85730; 86850; 86900; 86901; 88304; 96361; 96374; 96375; 99285; A9270; A9577; J1100; J1171; J2003; J2250; J2270; J2405; J2543; J2704; J3010; J7030; J7120